=== PATIENT | female | born 1990 | race Caucasian/White ===

== ENCOUNTER 2020-04-22 10:24 | Outpatient (REF) | payer OTHER, SELFPAY | END 2020-04-22 10:25 | disposition home or self-care (01) | LOC: HO.LAB 10:24 | PROVIDERS: Visit Provider Internal Medicine | DX: Z20.822 Contact with and (suspected) exposure to COVID-19 (principal) | CPT/HCPCS: 36415; C9803; U0003 ==

== ENCOUNTER 2020-07-14 13:58 | Outpatient (REF) | payer OTHER, SELFPAY ==
[2020-07-15 09:59] LABS: BV Int Neg Control Negative (Negative); BV Int Pos Control Positive (Positive)
[2020-07-15 10:41] LABS: CT PCR NOT DETECTED (Not Detect.); NG PCR NOT DETECTED (Not Detect.)
== END 2020-07-14 13:59 | disposition home or self-care (01) ==
LOC: HO.LAB 13:58
PROVIDERS: PCP Hospitalist; Visit Provider Advanced Practice Midwife
DX: Z01.419 Encounter for gynecological examination (general) (routine) without abnormal findings (principal); Z11.3 Encounter for screening for infections with a predominantly sexual mode of transmission; Z20.2 Contact with and (suspected) exposure to infections with a predominantly sexual mode of transmission
CPT/HCPCS: 87480; 87491; 87510; 87591; 87660

== ENCOUNTER 2020-08-26 14:25 | Outpatient (REF) | payer OTHER, SELFPAY ==
[2020-08-27 08:46] LABS: BV Int Neg Control Negative (Negative); BV Int Pos Control Positive (Positive)
[2020-08-27 08:47] LABS: CT PCR NOT DETECTED (Not Detect.); NG PCR NOT DETECTED (Not Detect.)
== END 2020-08-26 14:26 | disposition home or self-care (01) ==
LOC: HO.LAB 14:25
PROVIDERS: Visit Provider Advanced Practice Midwife
DX: N89.8 Other specified noninflammatory disorders of vagina (principal); Z20.2 Contact with and (suspected) exposure to infections with a predominantly sexual mode of transmission
CPT/HCPCS: 87480; 87491; 87510; 87591; 87660

== ENCOUNTER 2021-01-06 18:20 | Outpatient (REF) | payer OTHER, SELFPAY ==
[2021-01-06 18:30] LABS: Appearance Urine CLEAR; Color Urine YELLOW; Glucose Urine UA NEG (NEG); Leukocyte Esterase Urine NEG (NEG); Nitrite Urine NEG (NEG); Specific Gravity - Urine 1.025 (1.005-1.025); Urine Blood NEG (NEG); Urine Ketones NEG (NEG); Urine Protein NEG (NEG-TRACE)
== END 2021-01-06 18:21 | disposition home or self-care (01) ==
LOC: HO.LNP 18:20
PROVIDERS: Visit Provider Hospitalist
DX: Z00.00 Encounter for general adult medical examination without abnormal findings (principal)
CPT/HCPCS: 81003

== ENCOUNTER 2021-09-19 17:29 | Outpatient (REF) | payer BC, SELFPAY ==
[2021-09-20 06:04] LABS: CT PCR NOT DETECTED (Not Detect.); NG PCR NOT DETECTED (Not Detect.)
== END 2021-09-19 17:30 | disposition home or self-care (01) ==
LOC: HO.LNP 17:29
DX: Z11.3 Encounter for screening for infections with a predominantly sexual mode of transmission (principal); R30.0 Dysuria
CPT/HCPCS: 87491; 87591

== ENCOUNTER 2021-09-20 11:38 | Outpatient (REF) | payer BC, SELFPAY | END 2021-09-20 11:39 | disposition home or self-care (01) | LOC: HO.LAB 11:38 | DX: Z13.89 Encounter for screening for other disorder (principal) ==

== ENCOUNTER 2021-09-21 08:31 | Emergency (ER) | payer BC, SELFPAY ==
[2021-09-21 08:33] VITALS: BP 119/75; PULSE 86; RESP 18; TEMP 35.8; O2SAT 98; BMI 27.3
--- NOTE | 2021-09-21 09:31 | ED.SKABFB ---
HPI - Skin/Abscess/Foreign Bdy General Chief complaint: Skin/Abscess/Foreign Body Stated complaint: Canker Sores In Mouth Time Seen by Provider: 09/21/21 08:53 Source: patient Mode of arrival: ambulatory Limitations: no limitations History of Present Illness HPI narrative: 31-year-old female previously healthy here with 2 days of flu-like symptoms and then noted lesions in her mouth and around her genital area. Patient is sexually active with 1 male partner. She does not use any contraception. She denies any previous history of herpes. She denies any urinary symptoms, vomiting, diarrhea, abdominal pain, back pain. Related Data Previous Rx's Medication Instructions Recorded metronidazole 0.75 % vaginal gel 1 appful vaginal DAILY 5 days #70 09/19/21 grams valacyclovir 1 gram tablet 1,000 mg PO BID #14 tabs 09/21/21 (Valtrex) Allergies Allergy/AdvReac Type Severity Reaction Status Date / Time Seasonal Allergies Allergy Mild sneezing, Verified 09/19/21 14:09 runny nose Review of Systems Review of Systems: Yes all other systems are reviewed and are negative Constitutional: Constitutional: Reports no additional constitutional complaints, Reports body ache(s), Reports chills, Reports fever(s), Denies headache(s) and Denies weakness Eyes: Eyes: Reports no additional eye complaints and Denies change in vision ENT: Reports system reviewed and no additional complaints, except as documented, Denies dizziness, Denies headache(s), Reports mouth lesions, Denies nasal congestion, Denies nasal discharge and Denies neck pain Cardiovascular: Cardiovascular: Reports no additional cardiovascular complaints, Denies chest pain, Denies leg edema and Denies dyspnea Respiratory: Respiratory: Reports no additional respiratory complaints, Denies cough and Denies dyspnea Gastrointestinal: Gastrointestinal: Reports no additional gastrointestinal complaints, Denies abdominal pain, Denies diarrhea, Denies nausea and Denies vomiting Genitourinary: Genitourinary: Reports no additional female genitourinary complaints, Reports genital lesions and Denies urinary incontinence Musculoskeletal: Musculoskeletal: Reports no additional musculoskeletal complaints, Denies back pain, Denies arthralgias, Denies joint swelling, Denies neck pain, Denies numbness and Denies tingling Integumentary/Breasts: Skin/Breast: Reports system reviewed and no additional complaints, except as docu and Denies rash Neurologic: Reports system reviewed and no additional complaints, except as documented, Denies Abnormal speech present, Denies dizziness, Denies headache(s), Denies numbness, Denies tingling and Denies weakness PMFSH Past Medical History Attestation statement: The following information was validated with the patient. Source: old records reviewed and nursing notes reviewed Family History Family History Mother Diabetes Mental problem Mother HTN (hypertension) Father Hyperlipidemia Mental problem Substance abuse Social History Social History Housing: Apartment Alcohol intake: never Patient Tobacco Use Status: Never used Tobacco e-Cigarette/Vaping Use: Never Used Second Hand Smoke Exposure: No Advance Directives: No Advance Directives Information Provided: No service: No Current occupational status: employed Gender identity: Female Physical Exam Vital Signs: Vital Signs: Last Vital Signs Temp 96.5 F L 09/21/21 08:33 Pulse 86 09/21/21 08:33 Resp 18 09/21/21 08:33 BP 119/75 09/21/21 08:33 Pulse Ox 98 09/21/21 08:33 O2 Del Method 09/21/21 08:33 BMI result Body Mass Index 27.3 Const: General: cooperative, healthy appearing, comfortable and no acute distress Orientation/consciousness: patient oriented x3 Limitations: no limitations HEENT: Other: On the hard palate there are painful ulcerations noted with erythematous base Head: Yes normal to inspection Ears: hearing grossly normal bilaterally and TM's normal bilaterally General nose exam: Normal external nose present Face and sinus: Yes normal facial exam Mouth: Normal oral and palatal mucosa present Throat: Yes posterior oropharynx normal, Yes tonsils normal and Yes uvula midline Eyes: General: appearance normal, both eyes and all related structures Pupils: Equal, round and reactive pupils present Neck: Neck: Yes normal visual inspection, Yes full ROM, Yes no lymphadenopathy and Yes no meningeal signs Chest: Chest palpation & inspection: normal inspection of the chest Resp: Effort & Inspection: normal respiratory effort Auscultation: clear to auscultation bilaterally Cardio: Rate: regular rate Rhythm: regular rhythm Peripheral pulses: Peripheral pulses 2+ throughout GI: Inspection: Yes normal to inspection Palpation (GI): Soft to palpation and nontender Auscultation: normal bowel sounds : 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 Painful ulcerations with erythematous base 2. Painful ulcerations with erythematous base 3. Painful ulcerations with erythematous base 4. Painful ulcerations with erythematous base Back/Spine/Pelvis: Thoracic/Lumbar Spine: thoracic and lumbar spine normal to inspection Skin: General skin exam: no rashes or lesions noted Neuro: General: patient oriented x3, no meningeal signs, no focal motor deficits and normal sensation to monofilament Cranial nerves: Yes Equal, round and reactive pupils present Cognition (Neuro): normal cognition Speech: No Abnormal speech present Gait exam (Neuro): Normal gait present Motor exam (neuro): 5/5 motor strength present throughout Extrem: General: Yes normal to inspection Course Course Course Narrative: Exam consistent with HSV. Reviewed worrisome signs and symptoms of when to return to the emergency department. Comfortable discharge home. MDM - Skin/Abscess/Foreign Bdy MDM Narrative Medical decision making narrative: 31-year-old female with a prodromal flu-like symptoms now with painful lesions to the oropharynx and the genital area. Exam is consistent with HSV. Will also send chlamydia and gonorrhea testing for concurrent STI. Patient will be treated with Valtrex. Medical Records Attestation: I reviewed the patient's medical records. Lab Data Attestation: I reviewed the patient's lab results. Discharge Plan Discharge Clinical Impression: Herpes, Herpes genitalis Patient Disposition: Home, Self-Care Instructions: Genital Herpes Simplex (ED) Additional Instructions: We have tested you for STD's including herpes, gonorrhea and chlamydia. We will call you if these are positive. Avoid unprotected sex while you have active lesions Lukewarm foods/drinks, soft foods Prescriptions: New valacyclovir [Valtrex] 1 gram tablet 1,000 mg PO BID Qty: 14 0RF No Action metronidazole 0.75 % gel 1 appful vaginal DAILY 5 Days Qty: 70 0RF Referrals: Shellie Kwong NP [Primary Care Provider] - 1 week
[2021-09-21 11:15] LABS: CT PCR NOT DETECTED (Not Detect.); NG PCR NOT DETECTED (Not Detect.)
== END 2021-09-21 09:44 | disposition home or self-care (01) ==
PROVIDERS: Nurse Practitioner Family; Emergency Provider Emergency Medicine; PCP Hospitalist
DX: A60.00 Herpesviral infection of urogenital system, unspecified (principal); K12.0 Recurrent oral aphthae; Z79.899 Other long term (current) drug therapy; Z20.2 Contact with and (suspected) exposure to infections with a predominantly sexual mode of transmission
CPT/HCPCS: 87255; 87491; 87591; 99283

== ENCOUNTER 2022-11-29 08:28 | Outpatient (AMB) | payer BC, SELFPAY ==
--- NOTE | 2022-11-29 08:40 | A.OFFPC_ITS ---
Vital Signs 11/29/22 08:41 Height 5 ft Weight 169 lb 6 oz BMI 33.1 BP 118/62 Blood Pressure Location Rt brachial Position Sitting Respiration 14 Pulse 76 Pulse Source Pulse Oximeter Temp 98.9 F Temp Source Temporal Artery Scan Pulse Oximetry (%) 99 Oxygen Delivery Method Room Air Intake Visit Reasons: Annual PE Intake Note: Patient presents for a physical today and reports she does not have any concerns. 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 She has history of genital herpes, on Valtrex. She reports h/o undiagnosed anxiety and depression. She admits to exercising regularly. She declines medication regimen or behavioral therapy. She notes her last pap smear test is within 3 years: normal. She will call to schedule a follow up appointment. [facility] Family History Mother Diabetes Mental problem Mother HTN (hypertension) Father Hyperlipidemia Mental problem Substance abuse Social History (System 03/22/22 @ 09:43 by Harriet Calero) Housing: Apartment Alcohol intake: never Patient Tobacco Use Status: Never used Tobacco e-Cigarette/Vaping Use: Never Used Second Hand Smoke Exposure: No service: No Current occupational status: employed Current occupational exposures/hazards: No Gender identity: Female Cognitive needs: No Hearing needs: No Vision needs: No Female Reproductive History Menstrual Age of Menarche: 10 Questionnaire PHQ-9 Over the last 2 weeks, how often have you been bothered by any of the following problems? 1. Little interest or pleasure in doing things: several days 2. Feeling down, depressed, or hopeless: not at all 3. Trouble falling or staying asleep, or sleeping too much: several days 4. Feeling tired or having little energy: several days 5. Poor appetite or overeating: nearly every day 6. Feeling bad about yourself - or that you are a failure or have let yourself or your family down: nearly every day 7. Trouble concentrating on things, such as reading the newspaper or watching television: not at all 8. Moving or speaking so slowly that other people could have noticed. Or the opposite - being so fidgety or restless that you have been moving around a lot more than usual: not at all 9. Thoughts that you would be better off or of hurting yourself in some way: not at all Total score: 9 Depression Screening Interpretation: Positive Depression Screening Follow-up: Existing condition and Declines treatment 07490 - PHQ-9 Billing: Yes Source: Developed by Drs. Wei Grajeda, Millie Monsalve, Salbador Kunz and colleagues, with an educational daija from [employer]. Thrive Questionnaire Date Thrive assessed: 11/29/22 I am a: Patient What is your living situation today?: I have a steady place to live Within the past 12 months, did the food you bought not last and you didn't have the money to get more?: Never true Within the past 12 months, did you worry whether your food would run out before you got money to buy more?: Never true Do you have trouble paying for medicines?: No Do you have trouble getting transportation to medical appointments?: No Do you have trouble paying your heating and electricity bill?: No Do you have trouble taking care of your child, family member or friend?: No Do you have trouble with day-to-day activities such as bathing, preparing meals, shopping, managing finances, etc.?: No Are you currently unemployed and looking for a job?: No Are you interested in more education?: No Please select the resources that you would like help with: None Currently or been in a relationship where the following occur: no concerns reported AUDIT C Alcohol Use Questionnaire (AUDIT-C) 1. How often do you have a drink containing alcohol?: Monthly or less 2. How many drinks containing alcohol do you have on a typical day when you are drinking?: 1 or 2 3. How often do you have six or more drinks on one occasion?: Less than monthly Total Score: 2 CAMMIE-7 AMB Questionnaire CAMMIE-7 Date CAMMIE - 7 assessed: 11/29/22 Feeling nervous, anxious, or on edge: 1 = Several days Not being able to stop or control worryin = Several days Worrying too much about different things: 3 = Nearly every day Trouble relaxin = Several days Being so restless that it is hard to sit still: 1 = Several days Becoming easily annoyed or irritable: 1 = Several days Feeling afraid as if something awful might happen: 0 = Not at all Total CAMMIE-7 score (0-4 normal; 5-9 mild; 10-14 moderate; 15-21 severe): 8 Source: Developed by Drs. Wei Grajeda, Millie Monsalve, Salbador Kunz and colleagues, with an educational daija from [employer]. CAMMIE-7 Assessment Billing CAMMIE-7 Assessment Tool: CAMMIE-7 Assessment 51586 Review of Systems Const Details: Denies chills, Denies fatigue, Denies fever(s), Denies headache(s) and Denies weakness HEENT Denies change in vision, Denies dizziness, Denies headache(s), Denies hearing loss, Denies nasal congestion, Denies sinus pain, Denies sinus pressure and Denies sore throat Card Denies chest pain, Denies lightheadedness, Denies dyspnea and Denies other (palpitations) Resp Denies cough, Denies dyspnea and Denies wheezing GI Denies abdominal pain, Denies melena, Denies hematochezia, Denies change in bowel habits, Denies dyspepsia and Denies nausea Denies hematuria and Denies dysuria Musc Denies abnormal gait, Denies myalgias, Denies arthralgias, Denies numbness and Denies tingling Skin/Breast Denies rash, Denies unusual bruising and Denies wounds Neuro Denies abnormal gait, Denies dizziness, Denies headache(s), Denies memory loss, Denies numbness, Denies Sensory deficit (Neuro), Denies tingling and Denies weakness Psych Reports anxiety, Reports depression and Denies memory loss Endo Denies cold intolerance, Denies fatigue, Denies heat intolerance, Denies polydipsia and Denies polyuria Roman/Lymph Denies easy bleeding and Denies easy bruising Aller/Immun Denies wheezing Physical exam (Primary Care) Vital Signs: Last Vital Signs Temp 98.9 F 11/29/22 08:41 Pulse 76 11/29/22 08:41 Resp 14 11/29/22 08:41 BP 118/62 11/29/22 08:41 Pulse Ox 99 11/29/22 08:41 Oxygen Delivery Method Room Air 11/29/22 08:41 BMI result Body Mass Index 33.1 Tobacco/Smoking Status: Tobacco use Status Tobacco use date assessed 11/29/22 11/29/22 08:48 Patient Tobacco Use Status Never used Tobacco 11/29/22 08:48 e-Cigarette/Vaping Use Never Used 11/29/22 08:48 PHQ-9: PHQ-9 Score PHQ-9: Total score 9 11/29/22 08:49 Depression Screening Interpretation: Positive Depression Screening Follow-up: Existing condition and Declines treatment Thrive Assessment: Date of Thrive Assessment Date Thrive assessed 11/29/22 11/29/22 08:52 Currently or been in a relationship where the following occur: no concerns reported Const Other: General: no acute distress, well developed, alert and awake Nutritional Appearance: well nourished Orientation/consciousness: patient oriented x3 HENMT Head: Yes normocephalic and Yes atraumatic Ears: hearing grossly normal bilaterally and TM's normal bilaterally General nose exam: Normal external nose present and Normal nares present Mouth: Normal oral and palatal mucosa present and moist mucous membranes Teeth and gingiva: dentition normal Throat: Yes oropharynx normal Eyes Pupils: Equal, round and reactive pupils present and Pupil accommodation reflex normal EOM: EOMs intact bilaterally Neck Neck: Yes normal visual inspection, Yes no lymphadenopathy and Yes trachea midline Thyroid: Thyroid normal Carotids: no bruits Lymphatic: no lymphadenopathy noted Chest Chest palpation & inspection: normal inspection of the chest Resp Effort & Inspection: normal respiratory effort Auscultation: clear to auscultation bilaterally Cardio Rate: regular rate Rhythm: regular rhythm Heart sounds: S1 normal heart sound present, S2 normal heart sound present, no gallops, no murmurs and no rubs Bruits: no abdominal aortic bruits and no carotid bruits GI Palpation (GI): No Abdominal aortic bruit present, Soft to palpation, nontender, No hepatosplenomegaly present and No Rebound tenderness present Auscultation: normal bowel sounds General: Yes no CVA tenderness Back/Spine/Pelvis Back: no CVA tenderness Cervical Spine: cervical ROM normal and No Cervical spine tenderness Thoracic/Lumbar Spine: thoraco-lumbar ROM normal, No pain with thoraco-lumbar ROM, No thoracic spinal tenderness and No lumbar spinal tenderness Skin General: warm and dry. Normal skin color. Normal skin turgor Lesions: no lesions Rashes: no rashes Trauma: no lacerations or abrasions Wounds: no wounds Nails: normal Neuro General: patient oriented x3, gait normal and CN's II-XI intact bilaterally Cranial nerves: Yes Equal, round and reactive pupils present Cognition (Neuro): normal cognition Gait exam (Neuro): Normal gait present Motor exam (neuro): 5/5 motor strength present throughout Sensory Exam: No Sensory deficit (Neuro) Deep tendon reflexes (DTR's): Right patellar reflex intensity grade: 2+ and Left patellar reflex intensity grade: 2+ Extrem General: Yes normal to inspection, No edema and No calf tenderness Psych Appearance: grossly normal Affect: normal affect Attitude: cooperative Thought process: Normal thought process present Assessment and Plan Assessment & Plan (1) Annual physical exam: Code(s): Z00.00 - Encounter for general adult medical examination without abnormal findings Plan: No significant physical restrictions or limitations noted Advised to get routine fasting blood work done and schedule a telehealth follow up for labs review Follow up with director of marketing [employer] as planned Return with symptoms or concerns Verbalized understanding and agreed with the treatment plan. (2) Anxiety and depression: Code(s): F41.9 - Anxiety disorder, unspecified; F32.A - Depression, unspecified Plan: She reports h/o undiagnosed anxiety and depression. She admits to exercising regularly. She declines medication regimen or behavioral therapy. Routine exercise encouraged Advised to inform her PCP if she changes her mind on medication regimen or behavioral therapy Return with worsening or new symptoms Verbalized understanding and agreed with the treatment plan. (3) Laboratory tests ordered as part of a complete physical exam (CPE): Code(s): Z00.00 - Encounter for general adult medical examination without abnormal f indings Plan: Fasting labs ordered as part of a complete physical exam. Advised to fast for at least 10 hours before getting labs drawn. May drink water Verbalized understanding and agreed with treatment plan. Orders: Orders Comprehensive [place]. Panel Fast Today Z00.00 - Encounter for general adult medical examination without abnormal findings Lipid Panel Today Z00.00 - Encounter for general adult medical examination without abnormal findings TSH reflex Free T4 Today Z00.00 - Encounter for general adult medical examination without abnormal findings Complete Blood Count Auto Diff Today Z00.00 - Encounter for general adult medical examination without abnormal findings UA CC w/rflx Micro + Cult Today Z00.00 - Encounter for general adult medical examination without abnormal findings Coding Level of Care Code Est Pt Level 3 (14143) Diagnoses Annual physical exam Z00.00 Anxiety and depression F41.9; F32.A Laboratory tests ordered as part of a complete physical exam (CPE) Z00.00 Additional Codes CAMMIE-7 Assessment Billing - CAMMIE-7 Assessment Tool: CAMMIE-7 Assessment 95218 ([id number])
[2022-11-29 08:41] VITALS: BP 118/62; PULSE 76; RESP 14; TEMP 37.2; O2SAT 99; BMI 33.1
== END 2022-11-29 09:09 | disposition home or self-care (01) ==
PROVIDERS: PCP Hospitalist; Visit Provider Nurse Practitioner Family
DX: Z00.00 Encounter for general adult medical examination without abnormal findings (principal); F41.9 Anxiety disorder, unspecified; F32.A Depression, unspecified
CPT/HCPCS: 99395

== ENCOUNTER 2022-12-27 13:39 | Outpatient (AMB) | payer BC, SELFPAY ==
--- NOTE | 2022-12-27 13:49 | MHC.PC.OV ---
Vital Signs 12/27/22 13:55 Height 5 ft Weight 168 lb 4 oz BMI 32.9 BP 128/64 Blood Pressure Location Lt brachial Position Sitting Respiration 14 Pulse 68 Pulse Source Pulse Oximeter Temp 98.9 F Temp Source Oral Pulse Oximetry (%) 99 Oxygen Delivery Method Room Air Intake Visit Reasons: red dry spot Intake Note: Patient reports she has a red, dry, oval shaped area on her inner right thigh. 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 Patient denies itching to the area. Patient reports she has not tried any treatments over the counter. 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 The rash is non-itchy, non-painful, and has been present for the past 2 weeks. She notes the rash is irritated when she is wearing pants. She not not tried any treatment. PFSH Family History Mother Diabetes Mental problem Mother HTN (hypertension) Father Hyperlipidemia Mental problem Substance abuse Social History Housing: Apartment Alcohol intake: never Patient Tobacco Use Status: Never used Tobacco e-Cigarette/Vaping Use: Never Used Second Hand Smoke Exposure: No service: No Current occupational status: employed Current occupational exposures/hazards: No Gender identity: Female Cognitive needs: No Hearing needs: No Vision needs: No Female Reproductive History Menstrual Age of Menarche: 10 Questionnaire Thrive Questionnaire Date Thrive assessed: 11/29/22 CAMMIE-7 AMB Questionnaire CAMMIE-7 Date CAMMIE - 7 assessed: 11/29/22 Source: Developed by Drs. Wei Grajeda, Milile Monsalve, Salbador Kunz and colleagues, with an educational daija from [employer]. Review of Systems Const Details: Const Denies chills, Denies fatigue, Denies fever(s), Denies headache(s) and Denies weakness ENT Denies dizziness and Denies headache(s) Card Denies chest pain, Denies lightheadedness, Denies dyspnea and Denies other (Palpitations) Resp Denies cough, Denies dyspnea, Denies wheezing and Denies other ( shortness of breath) GI Denies abdominal pain, Denies melena, Denies hematochezia, Denies change in bowel habits, Denies dyspepsia and Denies nausea Denies hematuria and Denies dysuria Musc Denies abnormal gait, Denies myalgias, Denies arthralgias, Denies numbness and Denies tingling Skin/Breast Reports rash, Denies unusual bruising and Denies wounds Neuro Denies abnormal gait, Denies dizziness, Denies headache(s), Denies memory loss, Denies numbness, Denies Sensory deficit (Neuro), Denies tingling and Denies weakness Psych Denies anxiety, Denies depression, Denies memory loss Endo Denies cold intolerance, Denies fatigue, Denies heat intolerance, Denies polydipsia and Denies polyuria Aller/Immun Denies wheezing Physical exam (Primary Care) Tobacco/Smoking Status: Tobacco use Status Tobacco use date assessed 11/29/22 12/27/22 13:50 Patient Tobacco Use Status Never used Tobacco 12/27/22 13:50 e-Cigarette/Vaping Use Never Used 12/27/22 13:50 Thrive Assessment: Date of Thrive Assessment Date Thrive assessed 11/29/22 12/27/22 13:50 Const Other: General: no acute distress and well developed Nutritional Appearance: well nourished Orientation/consciousness: patient oriented x3 HENMT Head: Yes normocephalic and Yes atraumatic Eyes General: appearance normal, both eyes and all related structures Pupils: Equal, round and reactive pupils present EOM: EOMs intact bilaterally Resp Effort & Inspection: normal respiratory effort Auscultation: clear to auscultation bilaterally Cardio Rate: regular rate Rhythm: regular rhythm Heart sounds: S1 normal heart sound present, S2 normal heart sound present, no gallops, no murmurs and no rubs GI Palpation (GI): No Abdominal aortic bruit present, Soft to palpation, nontender, No hepatosplenomegaly present and No Rebound tenderness present Auscultation: normal bowel sounds General: Yes no CVA tenderness Back/Spine/Pelvis Back: no CVA tenderness Cervical Spine: cervical ROM normal and No Cervical spine tenderness Thoracic/Lumbar Spine: thoraco-lumbar ROM normal, No pain with thoraco-lumbar ROM, No thoracic spinal tenderness and No lumbar spinal tenderness Extrem General: Yes normal to inspection, No edema and No calf tenderness Skin General: warm and dry. Normal skin color. Normal skin turgor Lesions: no lesions Rashes: oval, slightly raise rash with clear center noted to the medial right upper thigh, no edema, drainage, or overt infection Trauma: no lacerations or abrasions Wounds: no wounds Nails: normal Neuro General: patient oriented x3, gait normal and no focal neuro deficit Cranial nerves: Yes Equal, round and reactive pupils present Cognition (Neuro): normal cognition Gait exam (Neuro): Normal gait present Sensory Exam: No Sensory deficit (Neuro) Psych Appearance: grossly normal Affect: normal affect Attitude: cooperative Thought process: Normal thought process present Assessment and Plan Assessment & Plan (1) Ringworm: Code(s): B35.9 - Dermatophytosis, unspecified Plan: Oval, slightly raise rash with clear center noted to the medial right upper thigh, no edema, drainage, or overt infection Consistent with ringworm Ketoconazole ordered. Use as prescribed Return if no improvement in to the 3 week or worsening signs and symptoms Verbalized understanding and agreed with treatment plan. Medications: New ketoconazole 2% 1 appl topical BID 30 grams 0RF Coding Level of Care Code Est Pt Level 2 (90671) Diagnoses Ringworm B35.9
[2022-12-27 13:55] VITALS: BP 128/64; PULSE 68; RESP 14; TEMP 37.2; O2SAT 99; BMI 32.9
== END 2022-12-27 15:29 | disposition home or self-care (01) ==
PROVIDERS: PCP Hospitalist; Visit Provider Nurse Practitioner Family
DX: B35.9 Dermatophytosis, unspecified (principal)
CPT/HCPCS: 99212

== ENCOUNTER 2023-08-17 14:58 | Outpatient (AMB) | payer BC, SELFPAY ==
--- NOTE | 2023-08-17 15:00 | MHC.PC.OV ---
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 Required: No Accompanied by: Self / Same As Patient Allergies Seasonal Allergies Allergy (Mild, Verified 08/17/23 15:25) sneezing, runny nose Tobacco use date assessed: 08/17/23 Dental Screening Dental Screen Date: 08/17/23 Did you have a dental visit in the last 12 months?: No Did you have a dental problem in the last 6 months where you did not have access to dental care?: No Was dental information given to patient?: Patient has dentist HPI HPI Comments History of Present Illness Details 33-year-old female presents for transfer of care Her former PCP is SHEMAR who is no longer with the practice Her last office visit/physical exam was in 11/29/2022. Routine labs were ordered but she has not gotten them done She has history of anxiety, depression, and genital herpes. She also reports astigmatism for which she uses prescription glasses. She notes that she is followed by Ophthalmology She notes that her last herpes outbreak was over a year ago and has not been taking valtrex for that long She notes that family and personal stressors contribute to her anxiety and depression symptoms. She states that, just a lot going on. She requests to connect with a therapist. [facility] Medical History (Updated 08/17/23 @ 15:40 by Shannon Whitlock CNP) No pertinent past medical history Surgical History (Updated 08/17/23 @ 15:07 by Gely Oleary [facility] No pertinent past surgical history Family History Mother Diabetes Mental problem Mother HTN (hypertension) Father Hyperlipidemia Mental problem Substance abuse Social History Housing: Apartment Alcohol intake: never Patient Tobacco Use Status: Never used Tobacco e-Cigarette/Vaping Use: Never Used Second Hand Smoke Exposure: No service: No Current occupational status: employed Current occupation: [employer] Current occupational exposures/hazards: No Gender identity: Female Cognitive needs: No Hearing needs: No Vision needs: No Female Reproductive History Menstrual Age of Menarche: 10 Questionnaire PHQ-9 Over the last 2 weeks, how often have you been bothered by any of the following problems? 1. Little interest or pleasure in doing things: nearly every day 2. Feeling down, depressed, or hopeless: several days 3. Trouble falling or staying asleep, or sleeping too much: more than half the days 4. Feeling tired or having little energy: more than half the days 5. Poor appetite or overeating: nearly every day 6. Feeling bad about yourself - or that you are a failure or have let yourself or your family down: several days 7. Trouble concentrating on things, such as reading the newspaper or watching television: several days 8. Moving or speaking so slowly that other people could have noticed. Or the opposite - being so fidgety or restless that you have been moving around a lot more than usual: not at all 9. Thoughts that you would be better off or of hurting yourself in some way: not at all Total score: 13 Depression Screening Interpretation: Positive Depression Screening Follow-up: Existing condition and Community Mental Health Worker F/U Depression Screening Done: Yes 51567 - PHQ-9 Billing: Yes Source: Developed by Drs. Wei Grajeda, Millie Monsalve, Salbador Knuz and colleagues, with an educational daija from [employer]. Thrive Questionnaire Date Thrive assessed: 08/17/23 I am a: Patient What is your living situation today?: I have a steady place to live Within the past 12 months, did the food you bought not last and you didn't have the money to get more?: Never true Within the past 12 months, did you worry whether your food would run out before you got money to buy more?: Never true Do you have trouble paying for medicines?: No Do you have trouble getting transportation to medical appointments?: No Do you have trouble paying your heating and electricity bill?: No Do you have trouble taking care of your child, family member or friend?: No Do you have trouble with day-to-day activities such as bathing, preparing meals, shopping, managing finances, etc.?: No Are you currently unemployed and looking for a job?: No Are you interested in more education?: No Please select the resources that you would like help with: None Currently or been in a relationship where the following occur: no concerns reported THRIVE Score: 0 AUDIT C Alcohol Use Questionnaire (AUDIT-C) 1. How often do you have a drink containing alcohol?: Monthly or less 2. How many drinks containing alcohol do you have on a typical day when you are drinking?: 1 or 2 3. How often do you have six or more drinks on one occasion?: Never Total Score: 1 CAMMIE-7 AMB Questionnaire CAMMIE-7 Date CAMMIE - 7 assessed: 08/17/23 Feeling nervous, anxious, or on edge: 1 = Several days Not being able to stop or control worryin = Several days Worrying too much about different things: 2 = More than half the days Trouble relaxin = More than half the days Being so restless that it is hard to sit still: 3 = Nearly every day Becoming easily annoyed or irritable: 1 = Several days Feeling afraid as if something awful might happen: 0 = Not at all Total CAMMIE-7 score (0-4 normal; 5-9 mild; 10-14 moderate; 15-21 severe): 10 Source: Developed by Drs. Wei Grajeda, Millie Monsalve, Salbador Kunz and colleagues, with an educational daija from [employer]. CAMMIE-7 Assessment Billing CAMMIE-7 Assessment Tool: CAMMIE-7 Assessment 88862 Review of Systems Const Details: Const Denies chills, Denies fatigue, Denies fever(s), Denies headache(s) and Denies weakness ENT Denies dizziness and Denies headache(s) Card Denies chest pain, Denies lightheadedness, Denies dyspnea and Denies other (Palpitations) Resp Denies cough, Denies dyspnea, Denies wheezing and Denies other ( shortness of breath) GI Denies abdominal pain, Denies melena, Denies hematochezia, Denies change in bowel habits, Denies dyspepsia and Denies nausea Denies hematuria and Denies dysuria Musc Denies abnormal gait, Denies myalgias, Denies arthralgias, Denies numbness and Denies tingling Skin/Breast Denies rash, Denies unusual bruising and Denies wounds Neuro Denies abnormal gait, Denies dizziness, Denies headache(s), Denies memory loss, Denies numbness, Denies Sensory deficit (Neuro), Denies tingling and Denies weakness Psych Denies anxiety, Denies depression, Denies memory loss Endo Denies cold intolerance, Denies fatigue, Denies heat intolerance, Denies polydipsia and Denies polyuria Aller/Immun Denies wheezing Physical exam (Primary Care) Vital Signs: Last Vital Signs Temp 97.1 F 08/17/23 15:01 Pulse 57 08/17/23 15:01 Resp 14 08/17/23 15:01 BP 108/74 08/17/23 15:01 Pulse Ox 99 08/17/23 15:01 Oxygen Delivery Method Room Air 08/17/23 15:01 BMI result Body Mass Index 28.2 Tobacco/Smoking Status: Tobacco use Status Tobacco use date assessed 08/17/23 08/17/23 15:09 Patient Tobacco Use Status Never used Tobacco 08/17/23 15:05 e-Cigarette/Vaping Use Never Used 08/17/23 15:05 PHQ-9: PHQ-9 Score PHQ-9: Total score 13 08/17/23 15:24 Depression Screening Interpretation: Positive Depression Screening Follow-up: Existing condition and Community Mental Health Worker F/U Thrive Assessment: Date of Thrive Assessment Date Thrive assessed 08/17/23 08/17/23 15:09 Currently or been in a relationship where the following occur: no concerns reported Const Other: General: no acute distress and well developed Nutritional Appearance: well nourished Orientation/consciousness: patient oriented x3 HENMT Head: Yes normocephalic and Yes atraumatic Eyes General: appearance normal, both eyes and all related structures Pupils: Equal, round and reactive pupils present EOM: EOMs intact bilaterally Resp Effort & Inspection: normal respiratory effort Auscultation: clear to auscultation bilaterally Cardio Rate: regular rate Rhythm: regular rhythm Heart sounds: S1 normal heart sound present, S2 normal heart sound present, no gallops, no murmurs and no rubs GI Palpation (GI): No Abdominal aortic bruit present, Soft to palpation, nontender, No hepatosplenomegaly present and No Rebound tenderness present Auscultation: normal bowel sounds General: Yes no CVA tenderness Back/Spine/Pelvis Back: no CVA tenderness Cervical Spine: cervical ROM normal and No Cervical spine tenderness Thoracic/Lumbar Spine: thoraco-lumbar ROM normal, No pain with thoraco-lumbar ROM, No thoracic spinal tenderness and No lumbar spinal tenderness Extrem General: Yes normal to inspection, No edema and No calf tenderness Skin General: warm and dry. Normal skin color. Normal skin turgor Neuro General: patient oriented x3, gait normal and no focal neuro deficit Cranial nerves: Yes Equal, round and reactive pupils present Cognition (Neuro): normal cognition Gait exam (Neuro): Normal gait present Sensory Exam: No Sensory deficit (Neuro) Psych Appearance: grossly normal Affect: normal affect Attitude: cooperative Thought process: Normal thought process present Assessment and Plan Assessment & Plan (1) Anxiety and depression: Code(s): F41.9 - Anxiety disorder, unspecified; F32.A - Depression, unspecified Plan: Reports personal and family stressors which Reports personal and family stressors contributing to her anxiety and depression symptoms Declines medication management at this time She met with the [facility] who will refer her to a therapist Routine exercise encouraged She may notify her PCP if she changes her mind on medication treatment for anxiety and depression Advised to get fasting lab work done before next visit Follow-up for telehealth visit in 2-3 weeks or return sooner with worsening or new symptoms Verbalized understanding and agreed with treatment plan (2) Astigmatism: Code(s): H52.209 - Unspecified astigmatism, unspecified eye Plan: Wears prescription glasses Advised to follow Ophthalmology as planned Return with symptoms or concerns Verbalized understanding and agreed with plan Coding Level of Care Code Est Pt Level 4 (99431) Complex EM visit Add On G2211 Diagnoses Anxiety and depression F41.9; F32.A Astigmatism H52.209 Additional Codes CAMMIE-7 Assessment Billing - CAMMIE-7 Assessment Tool: CAMMIE-7 Assessment [id number] ([id number])
[2023-08-17 15:01] VITALS: BP 108/74; PULSE 57; RESP 14; TEMP 36.2; O2SAT 99; BMI 28.2
== END 2023-08-17 15:32 | disposition home or self-care (01) ==
PROVIDERS: PCP Hospitalist; Visit Provider Nurse Practitioner Family
DX: F41.9 Anxiety disorder, unspecified (principal); F32.A Depression, unspecified
CPT/HCPCS: 99213

== ENCOUNTER 2023-09-26 08:09 | Outpatient (REF) | payer BC, SELFPAY ==
[2023-09-26 08:23] LABS: MANUAL DIFF FLAG NO
[2023-09-26 08:53] LABS: Basophils Percent Auto 0.5 % (0-2); Eosinophils Absolute Auto 0.1 X10*3/uL (0.0-0.4); Eosinophils Percent Auto 2.2 % (0-4); Hematocrit 39.4 % (37.0-47.0); Hemoglobin 12.6 g/dl (12.0-16.0); Imm Gran Abs Auto 0.02 X10*3/uL (0.00-0.03); Imm Gran Pct Auto 0.3 % (0.0-0.4); Lymphocytes Absolute Auto 2.3 X10*3/uL (1.2-4.9); Lymphocytes Percent Auto 35.7 % (20-40); Mean Corpuscular Hemoglobin 28.1 pg (27.0-33.0); Mean Corpuscular Volume 87.8 fL (80.0-98.0); Mean Platelet Volume 9.3 fL (9.4-12.3); Monocytes Absolute Auto 0.4 X10*3/uL (0.1-1.2); Monocytes Percent Auto 6.6 % (2-11); Neutrophils Absolute Auto 3.5 x10*3/uL (2.0-8.3); Neutrophils Percent Auto 54.7 % (45-73); Platelet Count 241 X10*3/uL (160-400); Red Blood Count 4.49 X10*6/uL (4.20-5.50); Red Cell Distribution Width 13.3 % (11.0-16.0); White Blood Count 6.4 X10*3/uL (4.8-10.8)
[2023-09-26 09:04] LABS: Appearance Urine Clear; Color Urine Yellow; Glucose Urine UA Negative (Negative); Leukocyte Esterase Urine Small (1+) (Negative); Nitrite Urine Negative (Negative); UMIC TRIGGER UACC YES; Urine Blood Negative (Negative); Urine Ketones Negative (Negative); Urine Protein Negative (Neg-Trace)
[2023-09-26 09:12] LABS: Bacteria Urine None Seen (None Seen); Hyaline Casts Urine 0-2 /LPF (0-2); RBC Urine 0-2 /HPF (0-2); UACC Culture Trigger YES; WBC Urine 0-5 /HPF (0-5)
[2023-09-26 09:36] LABS: Alanine Aminotransferase 16 U/L (0-31); Albumin Level 3.6 g/dL (3.5-5.0); Alkaline Phosphatase 44 U/L (39-117); Anion Gap 10 (12-20); Aspartate Amino Transferase 18 U/L (5-31); Bilirubin Total 0.3 mg/dL (0.0-1.0); Blood Urea Nitrogen 13 mg/dL (9-16); Calcium 8.9 mg/dL (8.4-10.2); Carbon Dioxide 27 mmol/L (22-29); Chloride 106 mmol/L (96-108); Cholesterol 201 mg/dL (<200); Estimated Glomerular Filt Rate > 60; Glucose Fasting 83 mg/dL (60-99); HDL Cholesterol 53 mg/dL (>40); LDL Cholesterol Calculated 136 mg/dL (<100); Sodium 139 mmol/L (135-145); Total Protein 6.7 g/dL (6.5-8.0); Triglycerides 63 mg/dL (<150)
[2023-09-26 09:51] LABS: TSH reflex Free T4 0.71 uIU/mL (0.32-4.0)
== END 2023-09-26 08:10 | disposition home or self-care (01) ==
LOC: HO.LAB 08:09
PROVIDERS: PCP Nurse Practitioner Family; Visit Provider Nurse Practitioner Family
DX: Z00.00 Encounter for general adult medical examination without abnormal findings (principal)
CPT/HCPCS: 36415; 80053; 80061; 81001; 81003; 84443; 85025; 87086

== ENCOUNTER 2024-05-21 13:38 | Outpatient (AMB) | payer BC, SELFPAY ==
--- NOTE | 2024-05-21 13:40 | A.OFFPC_ITS ---
Vital Signs 05/21/24 13:46 Height 5 ft Weight 169 lb BMI 33.0 BP 121/57 L Blood Pressure Location Rt brachial Position Sitting Respiration 16 Pulse 84 Pulse Source Pulse Oximeter Temp 97.8 F Temp Source Oral Pulse Oximetry (%) 100 Oxygen Delivery Method Room Air Intake Visit Reasons: Hand Numbness Intake Note: patient here c/o Numbness on both hands for a couple of weeks now. Contact Center Rep Required: No Is last menstrual period known: Yes Last menstrual period: 05/21/24 Post menopausal: No Patient : No Allergies Seasonal Allergies Allergy (Mild, Verified 05/21/24 13:50) sneezing, runny nose Medication List - Last Reconciled 05/21/24 by Shannon Whitlock CNP No Known Home Meds Tobacco use date assessed: 05/21/24 Dental Screening Dental Screen Date: 05/21/24 Did you have a dental visit in the last 12 months?: Yes Did you have a dental problem in the last 6 months where you did not have access to dental care?: No Was dental information given to patient?: Patient has dentist HPI HPI Comments History of Present Illness Details 33-year-old female presents with complai nts of intermittent numbness and tingling in both hands for the past two months. The numbness radiates to her forearms but does not occur in both arms/forearms at the same time. Her symptoms are intensifies at night, right hand worse than left. She denies injury or trauma. She denies loss of sensation. She denies acute symptoms at this time. 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 Wei Grajeda, Millie Monsalve, Salbador Kunz and colleagues, with an educational daija from [employer]. Review of Systems Const Details: Const Denies chills, Denies fatigue, Denies fever(s), Denies headache(s) and Denies weakness ENT Denies dizziness and Denies headache(s) Card Denies chest pain, Denies lightheadedness, Denies dyspnea and Denies other (Palpitations) Resp Denies cough, Denies dyspnea, Denies wheezing and Denies other ( shortness of breath) GI Denies abdominal pain, Denies melena, Denies hematochezia, Denies change in bowel habits, Denies dyspepsia and Denies nausea Denies hematuria and Denies dysuria Musc Denies abnormal gait, Denies myalgias, Denies arthralgias, Denies numbness and Denies tingling Skin/Breast Denies rash, Denies unusual bruising and Denies wounds Neuro Denies abnormal gait, Denies dizziness, Denies headache(s), Denies memory loss, Reports numbness, Denies Sensory deficit (Neuro), Reports tingling and Denies weakness Psych Denies anxiety, Denies depression, Denies memory loss Endo Denies cold intolerance, Denies fatigue, Denies heat intolerance, Denies polydipsia and Denies polyuria Aller/Immun Denies wheezing Physical exam (Primary Care) Vital Signs: Last Vital Signs Temp 97.8 F 05/21/24 13:46 Pulse 84 05/21/24 13:46 Resp 16 05/21/24 13:46 BP 121/57 L 05/21/24 13:46 Pulse Ox 100 05/21/24 13:46 Oxygen Delivery Method Room Air 05/21/24 13:46 BMI result Body Mass Index 33.0 Tobacco/Smoking Status: Tobacco use Status Tobacco use date assessed 05/21/24 05/21/24 13:47 Patient Tobacco Use Status Never used Tobacco 05/21/24 13:42 e-Cigarette/Vaping Use Never Used 05/21/24 13:42 Thrive Assessment: Date of Thrive Assessment Date Thrive assessed 08/17/23 05/21/24 13:42 Const Other: General: no acute distress and well developed Nutritional Appearance: well nourished Orientation/consciousness: patient oriented x3 [facility] Head: Yes normocephalic and Yes atraumatic Eyes General: appearance normal, both eyes and all related structures Pupils: Equal, round and reactive pupils present EOM: EOMs intact bilaterally Resp Effort & Inspection: normal respiratory effort Auscultation: clear to auscultation bilaterally Cardio Rate: regular rate Rhythm: regular rhythm Heart sounds: S1 normal heart sound present, S2 normal heart sound present, no gallops, no murmurs and no rubs GI Palpation (GI): No Abdominal aortic bruit present, Soft to palpation, nontender, No hepatosplenomegaly present and No Rebound tenderness present Auscultation: normal bowel sounds General: Yes no CVA tenderness Back/Spine/Pelvis Back: no CVA tenderness Cervical Spine: cervical ROM normal and No Cervical spine tenderness Thoracic/Lumbar Spine: thoraco-lumbar ROM normal, No pain with thoraco-lumbar ROM, No thoracic spinal tenderness and No lumbar spinal tenderness Extrem General: Yes normal to inspection, No edema and No calf tenderness Skin General: warm and dry. Normal skin color. Normal skin turgor Lesions: no lesions Rashes: no rashes Trauma: no lacerations or abrasions Wounds: no wounds Nails: normal Neuro General: patient oriented x3, gait normal and no focal neuro deficit Cranial nerves: Yes Equal, round and reactive pupils present Cognition (Neuro): normal cognition Gait exam (Neuro): Normal gait present Sensory Exam: No Sensory deficit (Neuro) Psych Appearance: grossly normal Affect: normal affect Attitude: cooperative Thought process: Normal thought process present Coding Level of Care Code Est Pt Level 3 (36581) Diagnoses Numbness and tingling in both hands R20.0; R20.2 Laboratory tests ordered as part of a complete physical exam (CPE) Z00.00 Assessment & Plan Assessment & Plan (1) Numbness and tingling in both hands: Code(s): R20.0 - Anesthesia of skin; R20.2 - Paresthesia of skin Category: Medical Plan: Intermittent numbness and tingling in both hands x2 months. No injury or trauma. Normal exam of the upper extremities. Positive radial pulse bilaterally. Capillary refill brisk. ROM and CML within normal limit. Will check labs, including vitamin B12 and folate and make changes as needed. Adequate hydration encouraged. Advised to get blood work done and follow-up for an extended physical exam. Return sooner with worsening or new symptoms. Verbalized understanding and agreed with treatment plan. (2) Laboratory tests ordered as part of a complete physical exam (CPE): Code(s): Z00.00 - Encounter for general adult medical examination without abnormal findings Category: Medical Plan: Fasting labs ordered as part of a complete physical exam. Advised to fast for at least 10 hours before getting labs drawn. May drink water Verbalized understanding and agreed with treatment plan. Orders: Orders Complete Blood Count Auto Diff Today R20.0 - Anesthesia of skin, R20.2 - Paresthesia of skin, Z00.00 - Encounter for general adult medical examination without abnormal findings Lipid Panel Today Z00.00 - Encounter for general adult medical examination without abnormal findings Vitamin B12 and Folate Today R20.0 - Anesthesia of skin, R20.2 - Paresthesia of skin Comprehensive Douglas. Panel Fast Today R20.0 - Anesthesia of skin, R20.2 - Paresthesia of skin, Z00.00 - Encounter for general adult medical examination without abnormal findings TSH reflex Free T4 Today Z00.00 - Encounter for general adult medical examination without abnormal findings UA CC w/rflx Micro + Cult Today Z00.00 - Encounter for general adult medical examination without abnormal findings Microalbumin, Random (w Creat) Today Z00.00 - Encounter for general adult med ical examination without abnormal findings Vitamin D 25-OH Total Today Z00.00 - Encounter for general adult medical examination without abnormal findings
[2024-05-21 13:46] VITALS: BP 121/57; PULSE 84; RESP 16; TEMP 36.6; O2SAT 100; BMI 33.0
--- OUTSIDE RECORDS SUMMARY | 2024-05-21 13:59 | XMS_ITS | Clinical Summary ---
Author Organization [facility] Address [address] [place] [address] Care Team Providers Care Hourly Team Members Name Role Phone Armando Whitfield Primary Care Provider [phone] Source Comments PLEASE NOTE, if this patient is a minor, it may be UNLAWFUL to discuss sensitive information that is contained in these records (such as FAMILY PLANNING, MENTAL HEALTH or SUBSTANCE ABUSE) with the minor patient's parent or other person without the patient's specific authorization.[facility] Allergies No known active allergies Medications cetirizine (ZYRTEC) 10 mg tabletIndications :Allergic rhinitis, unspecified allergic rhinitis type Take 1 Tab by mouth once daily. 30 Tab 11 10/20/2014 Active Active Problems Problem Noted Date Diagnosed Date Depression 10/20/2014 Overweight 10/20/2014 Immunizations Name Administration Dates Next Due Moderna COVID-19 Vaccine, re d cap blue label, 12+ Primary Series 08/11/2020,07/14/2020 Family History Medical History Relation Name Comments High Cholesterol Father Cancer Maternal Grandmother breast Diabetes Mother Relation Name Status Comments Father Maternal Grandmother Mother Social History Tobacco Use Types Packs/Day Years Used Date Smoking Tobacco: Never Smokeless Tobacco: Never Alcohol Use Standard Drinks/Week Comments No 0 (1 standard drink = 0.6 oz pur e alcohol) Social Connections Answer Date Recorded Connectedness 0 12/20/2023 Financial Resource Strain Answer Date R ecorded Financial Resource Strain 0 2023 Stress Answer Date Recorded Stress 0 08/14/2023 Physical Activity Answer Date Recorded Physical Activity 0 08/14/2023 Food Insecurity Answer Date Recorded Food 0 12/27/2023 Transportation Needs Answer Date Record ed Transportation 0 08/14/2023 Housing Stability Answer Date Recorded Housing 0 08/14/2023 Safety and Environment Answer Date Altaf rded Safety 0 08/14/2023 Utilities Answer Date Recorded Utilities 0 08/14/2023 Employment Answer Date Recorded Stress 0 12/20/2023 Comments No Sex and Gender Information Value Date Recorded Sex Assigned at Not on file Legal Sex Female 10:58 AM PDT Gender Identity Not on file Sexual Orientation Not on file 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 Industry 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 Start Date Job End Date [employer] Not on file 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 file Not on file Not on file Last Filed Vital Signs Vital Sign Reading Time Taken Comments Blood Pressure 116/70 10/20/2014 2:43 PM EDT Pulse 72 10/20/2014 2:43 PM EDT Temperature 36.6 ??C (97.9 ??F) 10/20/2014 2:43 PM ED T Respiratory Rate 17 10/20/2014 2:43 PM EDT Oxygen Saturation - - Inhaled Oxygen Concentration - - Weight 66.2 kg (146 lb) 10/20/2014 2:43 PM EDT Height 152 cm (4' 11.84 ) 10/20/2014 2:43 PM EDT Body Mass Index 28.66 10/20/2014 2:43 PM EDT Plan of Treatment Health Maintenance Due Date Last Done Comments HPV Screening 1992 Hepatitis C Screening 1992 Pap + HPV 1992 Tobacco Screening 1992 HIV Screening 08/14/2007 Relationship Safety Screening/Counseling 08/14/2007 Annual Preventive Care Visit 2010 Cervical Cancer Screening 2013 Pap Smear 2013 Depression Monitoring 01/20/2015 10/20/2014 Hypertension Screening (#1) 10/19/2017 [id number] ( season) 2023 021, 07/14/2020 Imm-Influenza (#1) 2023 01/14/2018, 0 12/20/2009, 12/28/2008 Alcohol and Drug Screen 04/02/2024 10/20/2014, 10/20 Imm-DTaP/Tdap/Td (7 - Td or Tdap) 04/13/2027 04/13/2017, 12/12/2004, 1996, Additional history exists Imm-Hepatitis B Completed 08/31/1995, 06/01, 04/30/1995 Cervical Ablation/Cold-Knife Conization Discontinued Cervical Cryotherapy Discontinued Colposcopy Discontinued Endometrial Biopsy Discontinued Excision/Leep Discontinued HPV Genotyping Discontinued Vaginal Pap Discontinued Vulvoscopy Discontinued Insurance [facility] Care Teams Hourly Team Members Relationship Specialty Start Date End Date Armando Whitfield PA [address] [place] [address] PCP - General Internal Medicine 03/30/16
== END 2024-05-21 13:59 | disposition home or self-care (01) ==
PROVIDERS: PCP Nurse Practitioner Family; Visit Provider Nurse Practitioner Family
DX: R20.0 Anesthesia of skin (principal); R20.2 Paresthesia of skin; Z00.00 Encounter for general adult medical examination without abnormal findings

== ENCOUNTER → 2024-05-21 13:38 | Outpatient (BNVA) | payer BC, SELFPAY | PROVIDERS: PCP Nurse Practitioner Family; Visit Provider Nurse Practitioner Family ==

== ENCOUNTER 2024-06-04 09:55 | Outpatient (REF) | payer BC, SELFPAY ==
[2024-06-04 10:10] LABS: MANUAL DIFF FLAG NO
--- OUTSIDE RECORDS SUMMARY | 2024-06-04 11:29 | XMS_ITS | Clinical Summary ---
Author Organization [facility] Address [address] [place] [address] Care Team Providers Care Sr. 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 on file Not on file Not [...] Monitoring 01/20/2015 10/20/2014 Hypertension Screening (#1) 10/19/2017 [id number] ( season) 2023 021, 07/14/2020 Imm-Influenza (#1) 2023 01/14/2018, 0 12/20/2009, 12/28/2008 Alcohol and Drug Screen 04/02/2024 10/20/2014, 10/20 Imm-DTaP/Tdap/Td (7 - Td or Tdap) 04/13/2027 04/13/2017, 12/12/2004, 1996, Additional history exists Imm-Hepatitis B Completed 08/31/1995, 06/01, 04/30/1995 Cervical Ablation/Cold-Knife Conization Discontinued Cervical Cryotherapy Discontinued Colposcopy Discontinued Endometrial Biopsy Discontinued Excision/Leep Discontinued HPV Genotyping Discontinued Vaginal Pap Discontinued Vulvoscopy Discontinued Insurance [facility] Care Teams Sr. Payroll Manager Relationship Specialty Start Date End Date Armando Whitfield PA [address] [place] [address] PCP - General Internal Medicine 03/30/16
[2024-06-04 11:46] LABS: Basophils Percent Auto 0.4 % (0-2); Eosinophils Absolute Auto 0.2 X10*3/uL (0.0-0.4); Eosinophils Percent Auto 3.3 % (0-4); Hematocrit 43.8 % (37.0-47.0); Hemoglobin 13.7 g/dl (12.0-16.0); Imm Gran Abs Auto 0.01 X10*3/uL (0.00-0.03); Imm Gran Pct Auto 0.2 % (0.0-0.4); Lymphocytes Absolute Auto 1.2 X10*3/uL (1.2-4.9); Lymphocytes Percent Auto 23.7 % (20-40); Mean Corpuscular HGB Conc 31.3 g/dl (31.0-35.0); Mean Corpuscular Volume 86.4 fL (80.0-98.0); Mean Platelet Volume 9.9 fL (9.4-12.3); Monocytes Absolute Auto 0.5 X10*3/uL (0.1-1.2); Monocytes Percent Auto 9.4 % (2-11); Neutrophils Absolute Auto 3.2 x10*3/uL (2.0-8.3); Platelet Count 239 X10*3/uL (160-400); Red Blood Count 5.07 X10*6/uL (4.20-5.50); Red Cell Distribution Width 13.3 % (11.0-16.0); White Blood Count 5.1 X10*3/uL (4.8-10.8)
[2024-06-04 11:54] LABS: Appearance Urine Clear; Color Urine Yellow; Glucose Urine UA Negative (Negative); Leukocyte Esterase Urine Moderate (2+) (Negative); Nitrite Urine Negative (Negative); UMIC TRIGGER UACC YES; Urine Blood Negative (Negative); Urine Ketones Negative (Negative); Urine Protein Negative (Neg-Trace)
[2024-06-04 12:03] LABS: Bacteria Urine 1+ (None Seen); Hyaline Casts Urine 0-2 /LPF (0-2); RBC Urine 0-2 /HPF (0-2); UACC Culture Trigger YES
[2024-06-04 12:32] LABS: Alanine Aminotransferase 26 U/L (0-31); Albumin Level 3.8 g/dL (3.5-5.0); Alkaline Phosphatase 64 U/L (39-117); Anion Gap 9 (12-20); Aspartate Amino Transferase 23 U/L (5-31); Bilirubin Total 0.4 mg/dL (0.0-1.0); Blood Urea Nitrogen 9 mg/dL (9-16); Carbon Dioxide 27 mmol/L (22-29); Chloride 106 mmol/L (96-108); Cholesterol 196 mg/dL (<200); Estimated Glomerular Filt Rate > 60; Glucose Fasting 80 mg/dL (60-99); HDL Cholesterol 53 mg/dL (>40); LDL Cholesterol Calculated 130 mg/dL (<100); Sodium 138 mmol/L (135-145); Total Protein 7.7 g/dL (6.5-8.0); Triglycerides 66 mg/dL (<150)
[2024-06-04 12:42] LABS: TSH reflex Free T4 0.67 uIU/mL (0.32-4.0); Vitamin D 25-OH Total 23.7 ng/mL (>30)
[2024-06-04 12:57] LABS: Creatinine Urine 164.29 mg/dL; Microalbum/Creatinine Ratio Ur 7.3 ug/mg cr (<30)
[2024-06-04 13:19] LABS: Folate 14.9 ng/mL (> or = 4.0); Vitamin B12 757 pg/mL (200-900)
== END 2024-06-04 09:56 | disposition home or self-care (01) ==
LOC: HO.LAB 09:55
PROVIDERS: PCP Nurse Practitioner Family; Visit Provider Nurse Practitioner Family
DX: Z00.00 Encounter for general adult medical examination without abnormal findings (principal); R20.0 Anesthesia of skin; R20.2 Paresthesia of skin; Z13.6 Encounter for screening for cardiovascular disorders; E55.9 Vitamin D deficiency, unspecified
CPT/HCPCS: 36415; 80053; 80061; 81001; 82043; 82306; 82570; 82607; 82746; 84443; 85025; 87086; 87147

== ENCOUNTER 2024-06-06 08:40 | Outpatient (AMB) | payer BC, SELFPAY ==
[2024-06-06 09:25] VITALS: BP 118/80; PULSE 114; TEMP 37.2; O2SAT 95; BMI 33.0
--- NOTE | 2024-06-06 09:25 | MHC.OFFWIV ---
Intake Vital Signs 06/06/24 09:25 Height 5 ft Weight 169 lb BMI 33.0 BP 118/80 Blood Pressure Location Lt brachial Position Sitting Pulse 114 H Pulse Source Pulse Oximeter Temp 99.0 F Temp Source Oral Pulse Oximetry (%) 95 Intake Visit Reasons: EP body aches, cough, congestion, ears, headache Intake Note: pt is here for body aches, cough, congestion, headaches Patient Tobacco Use Status: Never used Tobacco Allergies Seasonal Allergies Allergy (Mild, Verified 06/06/24 09:26) sneezing, runny nose Do you need a note to return to daycare/school/sports/work: Yes HPI EP body aches, cough, congestion, ears, headache HPI Details This is a 33-year-old female patient who presents to the walk-in clinic today a 2-3 day history body aches, congestion, ear pain kwgmv-cecwjgm-jbya-left, headache. Denies any known exposure to sick contacts. Took a COVID test at home which was negative. Denies any GI symptoms. Denies any shortness of breath. 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 Current occupational exposures/hazards: No Gender identity: Female Cognitive needs: No Hearing needs: No Vision needs: No Female Reproductive History Menstrual Age of Menarche: 10 Review of Systems Const All systems reviewed & are unremarkable except as noted in HPI and below Physical Exam Vital Signs: Last Vital Signs Temp 99.0 F 06/06/24 09:25 Pulse 114 H 06/06/24 09:25 BP 118/80 06/06/24 09:25 Pulse Ox 95 06/06/24 09:25 BMI result Body Mass Index 33.0 Const General: cooperative and no acute distress HEENT Head: Yes normal to inspection Ears: hearing grossly normal bilaterally, TM normal on the left and TM abnormal (right TM erythematous, loss of landmarks) General nose exam: Normal external nose present Face and sinus: Yes normal facial exam Neck Neck: Yes no lymphadenopathy Resp Effort & Inspection: normal respiratory effort Auscultation: clear to auscultation bilaterally Cardio Rate: regular rate Rhythm: regular rhythm Heart sounds: S1 normal heart sound present and S2 normal heart sound present Skin General skin exam: no rashes or lesions noted Extrem General: Yes capillary refill normal and Yes no clubbing, cyanosis or edema Psych Appearance: grossly normal Mental Status: mental status grossly normal Speech and movement: Normal speech and movement present Assessment & Plan Assessment & Plan (1) Right acute otitis media: Code(s): H66.91 - Otitis media, unspecified, right ear Plan: Patient has right acute otitis media in the presence of what appears to be a viral upper respiratory illness. We will start her on Augmentin for the ear infection. We reviewed indications, use, possible side effects of medication. Otherwise we discussed conservative measures for symptom management, including wfbh-xkv-nuykxel cold/ flu medication, Tylenol as needed. Also recommended adequate rest, hydration, healthy food intake. Work note provided. Patient advised to return to the clinic if she does not improve with time and these measures. She verbalizes understanding and agrees to plan. Viral swab obtained, and patient aware she will be notified of these results once they are available. Orders: Orders SARS-CoV2/FLU/RSV Today J06.9 - Acute upper respiratory infection, unspecified Medications: New amoxicillin-pot clavulanate 875-125 mg Take one tablet by mouth twice a day for 7 days. 1 tab PO BID 7 days 14 tabs 0RF H66.91 - Otitis media, unspecified, right ear Coding Level of Care Code Est Pt Level 4 (40233) Diagnoses Right acute otitis media H66.91
== END 2024-06-06 10:11 | disposition home or self-care (01) ==
PROVIDERS: PCP Nurse Practitioner Family; Visit Provider Nurse Practitioner Family
DX: H66.91 Otitis media, unspecified, right ear (principal)

== ENCOUNTER 2024-06-06 08:40 | Outpatient (REF) | payer BC, SELFPAY ==
[2024-06-06 14:06] LABS: Influenza A PCR POSITIVE (Negative); Influenza B PCR NEGATIVE (Negative); Resp Syncy Virus RNA Qual PCR NEGATIVE (Negative); SARS COV2 PCR INHOUSE NEGATIVE (Negative)
--- OUTSIDE RECORDS SUMMARY | 2024-06-06 14:49 | XMS_ITS | Clinical Summary ---
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 Not on file Not [...] Monitoring 01/20/2015 10/20/2014 Hypertension Screening (#1) 10/19/2017 [id number] ( season) 2023 021, 07/14/2020 Imm-Influenza (#1) 2023 01/14/2018, 0 12/20/2009, 12/28/2008 Alcohol and Drug Screen 04/02/2024 10/20/2014, 10/20 Imm-DTaP/Tdap/Td (7 - Td or Tdap) 04/13/2027 04/13/2017, 12/12/2004, 1996, Additional history exists Imm-Hepatitis B Completed 08/31/1995, 06/01, 04/30/1995 Cervical Ablation/Cold-Knife Conization Discontinued Cervical Cryotherapy Discontinued Colposcopy Discontinued Endometrial Biopsy Discontinued Excision/Leep Discontinued HPV Genotyping Discontinued Vaginal Pap Discontinued Vulvoscopy Discontinued Insurance [facility] Care Teams Regional Forester Relationship Specialty Start Date End Date Armando Whitfield PA [address] [place] [address] PCP - General Internal Medicine 03/30/16
== END 2024-06-06 08:41 | disposition home or self-care (01) ==
LOC: HO.LNP 08:40
PROVIDERS: PCP Nurse Practitioner Family; Visit Provider Nurse Practitioner Family
DX: J06.9 Acute upper respiratory infection, unspecified (principal); H66.91 Otitis media, unspecified, right ear
CPT/HCPCS: 0241U

== ENCOUNTER 2024-07-11 15:16 | Outpatient (AMB) | payer BC, SELFPAY ==
--- OUTSIDE RECORDS SUMMARY | 2024-07-11 15:19 | XMS_ITS | Clinical Summary ---
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 file Not on file Not [...] Health Maintenance Due Date Last Done Comments Anxiety Screening 1992 HPV Screening 1992 Hepatitis C Screening 1992 Pap + HPV 1992 Tobacco Screening 1992 HIV Screening 08/14/2007 Relationship Safety Screening/Counseling 08/14/2007 Cervical Cancer Screening 2013 Pap Smear 2013 Depression Monitoring 01/20/2015 10/20/2014 Hypertension Screening (#1) 10/19/2017 [id number] ( season) 2023 021, 07/14/2020 Imm-Influenza (#1) 2023 01/14/2018, 0 12/20/2009, 12/28/2008 Alcohol and Drug Screen 04/02/2024 10/20/2014, 10/20 Imm-DTaP/Tdap/Td (7 - Td or Tdap) 04/13/2027 04/13/2017, 12/12/2004, 1996, Additional history exists Imm-Hepatitis B Completed 08/31/1995, 06/01, 04/30/1995 Cervical Ablation/Cold-Knife Conization Discontinued Cervical Cryotherapy Discontinued Colposcopy Discontinued Endometrial Biopsy Discontinued Excision/Leep Discontinued HPV Genotyping Discontinued Vaginal Pap Discontinued Vulvoscopy Discontinued Insurance [facility] Care Teams Outbound Sales Specialist Relationship Specialty Start Date End Date Armando Whitfield PA [address] [place] [address] PCP - General Internal Medicine 03/30/16
--- NOTE | 2024-07-11 15:20 | MHC.PC.OV ---
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 Is last menstrual period known: Yes Last menstrual period: 07/04/24 Post menopausal: No Patient : No Allergies Seasonal Allergies Allergy (Mild, Verified 07/11/24 15:39) sneezing, runny nose Medication List - Last Reconciled 07/11/24 by Shannon Whitlock CNP amoxicillin-pot clavulanate 875-125 mg 1 tab PO BID 7 days cholecalciferol (vitamin D3) 25 mcg PO DAILY 30 days Tobacco use date assessed: 07/11/24 Dental Screening Dental Screen Date: 07/11/24 Did you have a dental visit in the last 12 months?: Yes Did you have a dental problem in the last 6 months where you did not have access to dental care?: No Was dental information given to patient?: Patient has dentist HPI HPI Comments History of Present Illness Details 33-year-old female presents for an extended physical exam. Acute issue(s) - Astigmatism: She wears prescription glasses. Past Medical History - Vitamin-D deficiency, astigmatism, genital herpes, anxiety, depression Social History - Nonsmoker. Does not vape. Has not drank alcohol for for the past 2 months. Denies recreational drug use - She generally makes unhealthy dietary choices. Walks regularly. Generally sleep well Health maintenance - Last eye exam was a year ago at [facility] in [facility]. 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 She will sign a release for her PCP to obtain her ophthalmology record - Last dental visit was 2 weeks ago - Last Tdap was in 04/13/2017 - Has not been vaccinated for the flu this season; declines vaccination - Last pap smear test was 3 years ago: normal. Record not available. She has an appointment in August with [facility] [place] a pap smear test. 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 1. Little interest or pleasure in doing things: more than half the days 2. Feeling down, depressed, or hopeless: several days 3. Trouble falling or staying asleep, or sleeping too much: not at all 4. Feeling tired or having little energy: more than half the days 5. Poor appetite or overeating: not at all 6. Feeling bad about yourself - or that you are a failure or have let yourself or your family down: several days 7. Trouble concentrating on things, such as reading the newspaper or watching television: several days 8. Moving or speaking so slowly that other people could have noticed. Or the opposite - being so fidgety or restless that you have been moving around a lot more than usual: not at all 9. Thoughts that you would be better off or of hurting yourself in some way: not at all Total score: 7 Depression Screening Interpretation: Positive Depression Screening Follow-up: Existing condition Depression Screening Done: Yes 60603 - PHQ-9 Billing: Yes Source: Developed by Drs. Wei Grajeda, Millie Monsalve, Salbador Kunz and colleagues, with an educational daija from [employer]. Thrive Questionnaire Date Thrive assessed: 07/11/24 I am a: Patient What is your living situation today?: I have a steady place to live Within the past 12 months, did the food you bought not last and you didn't have the money to get more?: Never true Within the past 12 months, did you worry whether your food would run out before you got money to buy more?: Never true Do you have trouble paying for medicines?: No Do you have trouble getting transportation to medical appointments?: No Do you have trouble paying your heating and electricity bill?: No Do you have trouble taking care of your child, family member or friend?: No Do you have trouble with day-to-day activities such as bathing, preparing meals, shopping, managing finances, etc.?: No Are you currently unemployed and looking for a job?: No Are you interested in more education?: No Please select the resources that you would like help with: None Currently or been in a relationship where the following occur: No concerns reported THRIVE Score: 0 AUDIT C Alcohol Use Questionnaire (AUDIT-C) 1. How often do you have a drink containing alcohol?: 2-4 times a month 2. How many drinks containing alcohol do you have on a typical day when you are drinking?: 1 or 2 3. How often do you have six or more drinks on one occasion?: Never Total Score: 2 Score Reviewed/Action Taken: Yes CAMMIE-7 AMB Questionnaire CAMMIE-7 Date CAMMIE - 7 assessed: 07/11/24 Feeling nervous, anxious, or on edge: 2 = More than half the days Not being able to stop or control worryin = More than half the days Worrying too much about different things: 2 = More than half the days Trouble relaxin = More than half the days Being so restless that it is hard to sit still: 2 = More than half the days Becoming easily annoyed or irritable: 2 = More than half the days Feeling afraid as if something awful might happen: 1 = Several days Total CAMMIE-7 score (0-4 normal; 5-9 mild; 10-14 moderate; 15-21 severe): 13 Source: Developed by Drs. Wei Grajeda, Millie Monsalve, Salbador Kunz and colleagues, with an educational daija from [employer]. CAMMIE-7 Assessment Billing CAMMIE-7 Assessment Tool: CAMMIE-7 Assessment 99472 Review of Systems Const Details: Denies chills, Denies fatigue, Denies fever(s), Denies headache(s) and Denies weakness HEENT Denies change in vision, Denies dizziness, Denies headache(s), Denies hearing loss, Denies nasal congestion, Denies sinus pain, Denies sinus pressure and Denies sore throat Card Denies chest pain, Denies lightheadedness, Denies dyspnea and Denies other (palpitations) Resp Denies cough, Denies dyspnea and Denies wheezing GI Denies abdominal pain, Denies melena, Denies hematochezia, Denies change in bowel habits, Denies dyspepsia and Denies nausea Denies hematuria and Denies dysuria Musc Denies abnormal gait, Denies myalgias, Denies arthralgias, Denies numbness and Denies tingling Skin/Breast Denies rash, Denies unusual bruising and Denies wounds Neuro Denies abnormal gait, Denies dizziness, Denies headache(s), Denies memory loss, Denies numbness, Denies Sensory deficit (Neuro), Denies tingling and Denies weakness Psych Denies anxiety, Denies depression and Denies memory loss Endo Denies cold intolerance, Denies fatigue, Denies heat intolerance, Denies polydipsia and Denies polyuria Roman/Lymph Denies easy bleeding and Denies easy bruising Aller/Immun Denies wheezing Physical exam (Primary Care) Vital Signs: Last Vital Signs Temp 97.8 F 07/11/24 15:24 Pulse 75 07/11/24 15:24 Resp 16 07/11/24 15:24 BP 116/63 07/11/24 15:24 Pulse Ox 100 07/11/24 15:24 Oxygen Delivery Method Room Air 07/11/24 15:24 BMI result Body Mass Index 33.7 Tobacco/Smoking Status: Tobacco use Status Tobacco use date assessed 07/11/24 07/11/24 15:31 Patient Tobacco Use Status Never used Tobacco 07/11/24 15:22 e-Cigarette/Vaping Use Never Used 07/11/24 15:22 PHQ-9: PHQ-9 Score PHQ-9: Total score 7 07/11/24 15:31 Depression Screening Interpretation: Positive Depression Screening Follow-up: Existing condition Thrive Assessment: Date of Thrive Assessment Date Thrive assessed 07/11/24 07/11/24 15:31 Currently or been in a relationship where the following occur: No concerns reported Const Other: General: no acute distress, well developed, alert and awake Nutritional Appearance: well nourished Orientation/consciousness: patient oriented x3 [facility] Head: Yes normocephalic and Yes atraumatic Ears: hearing grossly normal bilaterally and TM's normal bilaterally General nose exam: Normal external nose present and Normal nares present Mouth: Normal oral and palatal mucosa present and moist mucous membranes Teeth and gingiva: dentition normal Throat: Yes oropharynx normal Eyes Pupils: Equal, round and reactive pupils present and Pupil accommodation reflex normal EOM: EOMs intact bilaterally Neck Neck: Yes normal visual inspection, Yes no lymphadenopathy and Yes trachea midline Thyroid: Thyroid normal Carotids: no bruits Lymphatic: no lymphadenopathy noted Chest Chest palpation & inspection: normal inspection of the chest Resp Effort & Inspection: normal respiratory effort Auscultation: clear to auscultation bilaterally Cardio Rate: regular rate Rhythm: regular rhythm Heart sounds: S1 normal heart sound present, S2 normal heart sound present, no gallops, no murmurs and no rubs Bruits: no abdominal aortic bruits and no carotid bruits GI Palpation (GI): No Abdominal aortic bruit present, Soft to palpation, nontender, No hepatosplenomegaly present and No Rebound tenderness present Auscultation: normal bowel sounds General: Yes no CVA tenderness Back/Spine/Pelvis Back: no CVA tenderness Cervical Spine: cervical ROM normal and No Cervical spine tenderness Thoracic/Lumbar Spine: thoraco-lumbar ROM normal, No pain with thoraco-lumbar ROM, No thoracic spinal tenderness and No lumbar spinal tenderness Skin General: warm and dry. Normal skin color. Normal skin turgor Lesions: no lesions Rashes: no rashes Trauma: no lacerations or abrasions Wounds: no wounds Nails: normal Neuro General: patient oriented x3, gait normal and CN's II-XI intact bilaterally Cranial nerves: Yes Equal, round and reactive pupils present Cognition (Neuro): normal cognition Gait exam (Neuro): Normal gait present Motor exam (neuro): 5/5 motor strength present throughout Sensory Exam: No Sensory deficit (Neuro) Deep tendon reflexes (DTR's): Right patellar reflex intensity grade: 2+ and Left patellar reflex intensity grade: 2+ Extrem General: Yes normal to inspection, No edema and No calf tenderness Psych Appearance: grossly normal Affect: normal affect Attitude: cooperative Thought process: Normal thought process present Coding Level of Care Code Est Pt Level 3 (89478) Est Pt Prev Care 18-39y(76318) Diagnoses Normal physical examination, routine Z00.00 Anxiety and depression F41.9; F32.A Hypercholesterolemia E78.00 Vitamin D deficiency E55.9 Obesity (BMI 30-39.9) E66.9 Additional Codes CAMMIE-7 Assessment Billing - CAMMIE-7 Assessment Tool: CAMMIE-7 Assessment 97995 ([id number]) PHQ-9 - 05492 - PHQ-9 Billing: Yes ([id number]) Assessment & Plan Assessment & Plan (1) Normal physical examination, routine: Code(s): Z00.00 - Encounter for general adult medical examination without abnormal findings Category: Medical Plan: No significant functional limitation noted. Continue current treatment regimen. Healthy diet and routine exercise encouraged. Perform lab work 2-3 days before next visit. Follow-up for telehealth in 2 months. Return sooner with symptoms or concerns. Verbalized understanding and agreed with plan. (2) Anxiety and depression: Code(s): F41.9 - Anxiety disorder, unspecified; F32.A - Depression, unspecified Category: Medical Plan: Reports controlled anxiety and depressive symptoms. PHQ-9 and CAMMIE-7 scores revealed mild depression and moderate anxiety respectively. Routine exercise encouraged. Follow-up with symptoms or concerns. Verbalized understanding and agreed with treatment plan. (3) Hypercholesterolemia: Code(s): E78.00 - Pure hypercholesterolemia, unspecified Category: Medical Plan: Recent LDL level is slightly elevated, 130. Triglycerides, total cholesterol, and HDL levels are normal. Advised to limit foods high in saturated fat and avoid foods high in trans fat. Routine exercise encouraged. Fast for 10-12 hours, may drink water, perform lipid panel blood work 2-3 days before next visit. Follow-up for telehealth visit in 2 months. Verbalized understanding and agreed with the plan. (4) Vitamin D deficiency: Code(s): E55.9 - Vitamin D deficiency, unspecified Category: Medical Plan: Recent vitamin-D level is low, 23.7. She was recently prescribed vitamin D3 25 mcg which she has been taking as prescribed. Continue current treatment regimen. Will recheck vitamin-D level in 2 months. (5) Obesity (BMI 30-39.9): Code(s): E66.9 - Obesity, unspecified Category: Medical Plan: She currently weighs 172 lb, BMI is 33.7. She has been making on healthy dietary choices including steak and cheese. Declines referral to ammonia box operator/dietitian or weight management at this time. She notes that she would improve her diet and start going to the gym. Healthy diet and routine exercise encouraged. Follow-up as needed. Verbalized understanding and agreed with treatment plan. Orders: Orders Lipid Panel 2 Months E78.00 - Pure hypercholesterolemia, unspecified Medications: Discontinued amoxicillin-pot clavulanate 875-125 mg Take one tablet by mouth twice a day for 7 days. Discontinued Reason: Patient no longer taking 1 tab PO BID 7 days 14 tabs 0RF H66.91 - Otitis media, unspecified, right ear
[2024-07-11 15:24] VITALS: BP 116/63; PULSE 75; RESP 16; TEMP 36.6; O2SAT 100; BMI 33.7
== END 2024-07-11 15:57 | disposition home or self-care (01) ==
LOC: HO.HMCFM 15:17
PROVIDERS: PCP Nurse Practitioner Family; Visit Provider Nurse Practitioner Family
DX: Z00.00 Encounter for general adult medical examination without abnormal findings (principal); F41.9 Anxiety disorder, unspecified; E66.9 Obesity, unspecified; Z68.33 Body mass index [BMI] 33.0-33.9, adult; F32.A Depression, unspecified; E78.00 Pure hypercholesterolemia, unspecified; E55.9 Vitamin D deficiency, unspecified

== ENCOUNTER → 2024-07-11 15:16 | Outpatient (BNVA) | payer BC, SELFPAY | PROVIDERS: PCP Nurse Practitioner Family; Visit Provider Nurse Practitioner Family | DX: Z00.00 Encounter for general adult medical examination without abnormal findings (principal); F41.9 Anxiety disorder, unspecified; F32.A Depression, unspecified; E78.00 Pure hypercholesterolemia, unspecified; E55.9 Vitamin D deficiency, unspecified; E66.9 Obesity, unspecified; Z68.33 Body mass index [BMI] 33.0-33.9, adult | CPT/HCPCS: 96127 ==

== ENCOUNTER 2024-09-18 10:21 | Outpatient (REF) | payer BC, SELFPAY ==
[2024-09-18 11:16] LABS: Appearance Urine Clear; Color Urine Yellow; Glucose Urine UA Negative (Negative); Leukocyte Esterase Urine Moderate (2+) (Negative); Nitrite Urine Negative (Negative); UMIC TRIGGER UACC YES; Urine Blood Negative (Negative); Urine Ketones Negative (Negative); Urine Protein Negative (Neg-Trace)
[2024-09-18 11:27] LABS: Bacteria Urine Trace (None Seen); Hyaline Casts Urine 0-2 /LPF (0-2); RBC Urine 0-2 /HPF (0-2); UACC Culture Trigger YES; WBC Urine 0-5 /HPF (0-5)
--- OUTSIDE RECORDS SUMMARY | 2024-09-18 11:42 | XMS_ITS | Clinical Summary ---
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 Not on file Not on file Last Filed Vital Signs Vital Sign Reading Time Taken Comments Blood Pressure 116/70 10/20/2014 2:43 PM EDT Pulse 72 10/20/2014 2:43 PM EDT Temperature 36.6 C (97.9 F) 10/20/2014 2:43 PM EDT Respiratory Rate 17 10/20/2014 2:43 PM EDT [...] Monitoring 01/20/2015 10/20/2014 Hypertension Screening (#1) 10/19/2017 [id number] ( season) 2023 021, 07/14/2020 Alcohol and Drug Screen 04/02/2024 10/20/2014, 10/20 Imm-Influenza (Season Ended) 2024, 12/20/2009, 12/28/2008 Imm-DTaP/Tdap/Td (7 - Td or Tdap) 04/13/2027 04/13/2017, 12/12/2004, 1996, Additional history exists Imm-Hepatitis B Completed 08/31/1995, 06/01, 04/30/1995 Cervical Ablation/Cold-Knife Conization Discontinued Cervical Cryotherapy Discontinued Colposcopy Discontinued Endometrial Biopsy Discontinued Excision/Leep Discontinued HPV Genotyping Discontinued Vaginal Pap Discontinued Vulvoscopy Discontinued Insurance [facility] Care Teams Tax Intern Relationship Specialty Start Date End Date Armando Whitfield PA [address] [place] [address] PCP - General Internal Medicine 03/30/16
[2024-09-18 12:16] LABS: Cholesterol 216 mg/dL (<200); HDL Cholesterol 52 mg/dL (>40); LDL Cholesterol Calculated 145 mg/dL (<100); Triglycerides 98 mg/dL (<150)
[2024-09-18 12:32] LABS: Vitamin D 25-OH Total 35.4 ng/mL (>30)
== END 2024-09-18 10:22 | disposition home or self-care (01) ==
LOC: HO.LAB 10:21
PROVIDERS: PCP Nurse Practitioner Family; Visit Provider Nurse Practitioner Family
DX: E78.00 Pure hypercholesterolemia, unspecified (principal); E55.9 Vitamin D deficiency, unspecified; R82.79 Other abnormal findings on microbiological examination of urine
CPT/HCPCS: 36415; 80061; 81001; 82306; 87086; 87147

== ENCOUNTER 2024-09-19 13:43 | Outpatient (AMB) | payer BC, SELFPAY ==
--- NOTE | 2024-09-19 13:28 | A.OFFPC_ITS ---
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 Is last menstrual period known: Yes Last menstrual period: 08/02/24 Post menopausal: No Patient : No Allergies Seasonal Allergies Allergy (Mild, Verified 09/19/24 13:29) sneezing, runny nose Tobacco use date assessed: 09/19/24 Dental Screening Dental Screen Date: 09/19/24 Did you have a dental visit in the last 12 months?: Yes Did you have a dental problem in the last 6 months where you did not have access to dental care?: No Was dental information given to patient?: Patient has dentist HPI HPI Comments History of Present Illness Details 34-year-old female [facility] for hypercholesterolemia and vitamin-D deficiency follow-up. She admits to taking vitamin D3 as prescribed without adverse reactions. She notes that she consumes significant amount of processed foods. She walks regularly. She offers no complaints and denies acute symptoms at this time. 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 Current occupational exposures/hazards: No Gender identity: Female Cognitive needs: No Hearing needs: No Vision needs: No Female Reproductive History Menstrual Age of Menarche: 10 Date of last menstrual period: 08/02/24 Questionnaire Thrive Questionnaire Date Thrive assessed: 05/21/24 I am a: Patient What is your living situation today?: I have a steady place to live Within the past 12 months, did the food you bought not last and you didn't have the money to get more?: Never true Within the past 12 months, did you worry whether your food would run out before you got money to buy more?: Never true Do you have trouble paying for medicines?: No Do you have trouble getting transportation to medical appointments?: No Do you have trouble paying your heating and electricity bill?: No Do you have trouble taking care of your child, family member or friend?: No Do you have trouble with day-to-day activities such as bathing, preparing meals, shopping, managing finances, etc.?: No Are you currently unemployed and looking for a job?: No Are you interested in more education?: No Please select the resources that you would like help with: None Currently or been in a relationship where the following occur: No concerns reported THRIVE Score: 0 AUDIT C Alcohol Use Questionnaire (AUDIT-C) 2. How many drinks containing alcohol do you have on a typical day when you are drinking?: 1 or 2 3. How often do you have six or more drinks on one occasion?: Less than monthly Total Score: 1 CAMMIE-7 AMB Questionnaire CAMMIE-7 Date CAMMIE - 7 assessed: 07/11/24 Source: Developed by Drs. Wei Grajeda, Millie Monsalve, Salbador Kunz and colleagues, with an educational daija from [employer]. Review of Systems Const Details: Denies chills, Denies fatigue, Denies fever(s), Denies headache(s) and Denies weakness Cardiac Denies chest pain, Denies claudication, Denies leg edema, Denies lightheadedness, Denies palpitations, Denies dyspnea, Denies dyspnea on exertion, Denies orthopnea and Denies other (Loss of consciousness) Resp Denies cough, Denies excessive phlegm production, Denies dyspnea, Denies dyspnea on exertion, Denies snoring and Denies wheezing Physical exam (Primary Care) Tobacco/Smoking Status: Tobacco use Status Tobacco use date assessed 09/19/24 09/19/24 13:31 Patient Tobacco Use Status Never used Tobacco 09/19/24 13:31 e-Cigarette/Vaping Use Never Used 09/19/24 13:31 Thrive Assessment: Date of Thrive Assessment Date Thrive assessed 05/21/24 09/19/24 13:31 Currently or been in a relationship where the following occur: No concerns reported Const Other: Patient is alert and oriented x3 Telehealth Telehealth Telehealth Platform: Telephone Location of provider rendering services: practice address Location of patient: address on file Patient Identification confirmed using: Name, : Yes Telehealth method: voice only Patient verbally consented to treatment: Yes Patient verbally consented to billing insurance company: Yes Patient informed of any privacy concerns related to visit: Yes Coding Level of Care Code Tele Est Pt Level 3 (09362) Diagnoses Hypercholesterolemia E78.00 Vitamin D deficiency E55.9 Time Spent (min) 15 Assessment & Plan Assessment & Plan (1) Hypercholesterolemia: Code(s): E78.00 - Pure hypercholesterolemia, unspecified Category: Medical Plan: Recent total cholesterol and LDL levels a elevated, 216 and 145 respectively; previous levels were 196 and 130 respectively. Recent triglycerides and HDL levels are normal. She consumes significant amount of processed foods. Advised to limit foods high in saturated fat and avoid foods high in trans fat. Routine exercise encouraged. Fast for 10-12 hours, may drink water, perform lipid panel blood work 2-3 days before next visit. Follow-up for telehealth visit in 2 months. Return sooner with symptoms or concerns. Verbalized understanding and agreed with the plan. (2) Vitamin D deficiency: Code(s): E55.9 - Vitamin D deficiency, unspecified Category: Medical Plan: Recent vitamin-D level is normal. Continue current treatment regimen. Verbalized understanding and agreed with the plan.
== END 2024-09-19 15:26 | disposition home or self-care (01) ==
LOC: HO.HMCFM 13:43
PROVIDERS: PCP Nurse Practitioner Family; Visit Provider Nurse Practitioner Family
DX: E78.00 Pure hypercholesterolemia, unspecified (principal); E55.9 Vitamin D deficiency, unspecified

== ENCOUNTER → 2024-09-19 13:43 | Outpatient (BNVA) | payer BC, SELFPAY | PROVIDERS: PCP Nurse Practitioner Family; Visit Provider Nurse Practitioner Family | DX: E78.00 Pure hypercholesterolemia, unspecified (principal); E55.9 Vitamin D deficiency, unspecified | CPT/HCPCS: 98967 ==

== ENCOUNTER 2024-10-21 10:09 | Outpatient (AMB) | payer BC, SELFPAY ==
--- NOTE | 2024-10-21 10:18 | MHC.OFFWIV ---
Intake Vital Signs 10/21/24 10:19 Height 5 ft Weight 175 lb BMI 34.2 BP 102/70 Blood Pressure Location Lt brachial Position Sitting Pulse 71 Pulse Source Pulse Oximeter Temp 98.2 F Temp Source Oral Pulse Oximetry (%) 98 Oxygen Delivery Method Room Air Intake Visit Reasons: EP RT shoulder pain & unable to lift it Intake Note: pt here for right shoulder pain and she is unable to lift it 2 days Patient Tobacco Use Status: Never used Tobacco Allergies Seasonal Allergies Allergy (Mild, Verified 10/21/24 10:19) sneezing, runny nose Medication List - Last Reconciled 10/21/24 by Enmanuel Bazzi MD cholecalciferol (vitamin D3) 25 mcg PO DAILY 30 days diclofenac sodium 75 mg PO BID 10 days Do you need a note to return to daycare/school/sports/work: No HPI EP RT shoulder pain & unable to lift it HPI Details History - The patient is a 34-year-old female presenting with shoulder pain. - The shoulder pain began on Sunday night; it has been present for two days. - The pain onset was noted after she woke up on Sunday, with prior activities including cleaning the bathroom on Sunday. - There has been no prior history of similar episodes of shoulder pain. - Pain has been described as severe and persistent, affecting arm mobility. - The patient has taken Tylenol and Motrin, but neither has alleviated the pain. 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 Problem List - Shoulder pain right Patient Instructions - Rest the shoulder; - Begin gentle movement of the shoulder tomorrow. - Take prescribed medication for inflammation and pain. Diclofenac 75 mg b.i.d. with food - Stay off work for a couple of days and see how the shoulder improves. Review of Systems - General: No fever no chills - Neurological: No headaches no dizziness - Ear nose throat: No sore throat no hearing difficulty no ear pain - Cardiovascular: No syncope, no chest pain, no palpitations - Gastrointestinal: No nausea vomiting or diarrhea Physical Exam General: No acute distress HEENT: No acute findings Neck: Supple Respiratory system: Able to talk in full sentences, Gastrointestinal: No pain Extremities: Right shoulder pain, possible rotator cuff inflammation, no dislocation observed DIRECTOR PATIENT ACCOUNTING: Alert awake oriented Skin: Normal turgor PFSH Medical History No pertinent past medical history Surgical History No pertinent past surgical history Family History Mother Diabetes Mental problem Mother HTN (hypertension) Father Hyperlipidemia Mental problem Substance abuse Social History Housing: Apartment Alcohol intake: never Patient Tobacco Use Status: Never used Tobacco e-Cigarette/Vaping Use: Never Used Second Hand Smoke Exposure: No service: No Current occupational status: employed 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 Current occupational exposures/hazards: No Gender identity: Female Cognitive needs: No Hearing needs: No Vision needs: No Female Reproductive History Menstrual Age of Menarche: 10 Physical Exam Vital Signs: Last Vital Signs Temp 98.2 F 10/21/24 10:19 Pulse 71 10/21/24 10:19 BP 102/70 10/21/24 10:19 Pulse Ox 98 10/21/24 10:19 Oxygen Delivery Method Room Air 10/21/24 10:19 BMI result Body Mass Index 34.2 Assessment & Plan Assessment & Plan (1) Shoulder pain, right: Code(s): M25.511 - Pain in right shoulder Qualifiers: Chronicity: acute Qualified Code(s): M25.511 - Pain in right shoulder Plan History - The patient is a 34-year-old female presenting with shoulder pain. - The shoulder pain began on Sunday night; it has been present for two days. - The pain onset was noted after she woke up on Sunday, with prior activities including cleaning the bathroom on Sunday. - There has been no prior history of similar episodes of shoulder pain. - Pain has been described as severe and persistent, affecting arm mobility. - The patient has taken Tylenol and Motrin, but neither has alleviated the pain. 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 Problem List - Shoulder pain right Patient Instructions - Rest the shoulder; - Begin gentle movement of the shoulder tomorrow. - Take prescribed medication for inflammation and pain. Diclofenac 75 mg b.i.d. with food - Stay off work for a couple of days and see how the shoulder improves. Medications: New diclofenac sodium 75 mg PO BID 20 tabs 0RF pain 10 days Coding Level of Care Code Est Pt Level 3 (54479) Diagnoses Acute pain of right shoulder M25.511 Chronicity: acute
[2024-10-21 10:19] VITALS: BP 102/70; PULSE 71; TEMP 36.8; O2SAT 98; BMI 34.2
--- OUTSIDE RECORDS SUMMARY | 2024-10-21 11:10 | XMS_ITS | Clinical Summary ---
Author Organization [facility] Address [address] [place] [address] Care Team Providers Care Commutator Undercutter Name Role Phone Armando Whitfield Primary Care Provider [phone] Source Comments PLEASE NOTE, if this patient [...] file Not on file Not on file ELEVATOR ERECTOR Not on file Not on file Not [...] Monitoring 01/20/2015 10/20/2014 Hypertension Screening (#1) 10/19/2017 [id number] ( season) 2023 021, 07/14/2020 Alcohol and Drug Screen 04/02/2024 10/20/2014, 10/20 Imm-Influenza (#1) 2024 01/14/2018, 0 12/20/2009, 12/28/2008 Imm-DTaP/Tdap/Td (7 - Td or Tdap) 04/13/2027 04/13/2017, 12/12/2004, 1996, Additional history exists Imm-Hepatitis B Completed 08/31/1995, 06/01, 04/30/1995 Cervical Ablation/Cold-Knife Conization Discontinued Cervical Cryotherapy Discontinued Colposcopy Discontinued Endometrial Biopsy Discontinued Excision/Leep Discontinued HPV Genotyping Discontinued Vaginal Pap Discontinued Vulvoscopy Discontinued Insurance [facility] Care Teams Commutator Undercutter Relationship Specialty Start Date End Date Armando Whitfield PA [address] [place] [address] PCP - General Internal Medicine 03/30/16
== END 2024-10-21 10:57 | disposition home or self-care (01) ==
PROVIDERS: PCP Nurse Practitioner Family; Visit Provider Internal Medicine
DX: M25.511 Pain in right shoulder (principal)

== ENCOUNTER 2025-01-16 15:10 | Outpatient (AMB) | payer BC, SELFPAY ==
--- NOTE | 2025-01-16 15:24 | A.OFFPC_ITS ---
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 She reports a one year plus history of trying to get Menses monthly -5 day, consistent. She admits to taking vitamin D3 as prescribed without adverse reactions. Hyperlipidemia. She has been trying to eat much healthier, smaller portions and is active daily. She has been unable to lose any significant amount of weight Reports left wrist pain, left wrist and hand numbness. 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 HEENT: Denies changes in vision and hearing. RESPIRATORY: Denies SOB and cough. CV: Denies palpitations and CP GI: Denies abdominal pain, nausea, vomiting and diarrhea. : Denies dysuria and urinary frequency. MSK: Denies new myalgia and joint pain. SKIN: Denies rash and pruritus. NEUROLOGICAL: Denies headache PSYCHIATRIC: Denies recent changes in mood. PHYSICAL EXAM: GENERAL: Alert and oriented x 3. NAD EYES: EOMI. Anicteric. HENT: Moist mucous membranes. No scleral icterus. No cervical lymphadenopathy. LUNGS: Clear to auscultation bilaterally. CARDIOVASCULAR: Regular rate and rhythm. No murmur. No JVD. ABDOMEN: Soft, non-tender +bs EXTREMITIES: No edema. Non-tender. SKIN: No rashes or lesions. Warm. NEUROLOGIC: No focal neurological deficits. CN II-XII grossly intact PSYCHIATRIC: Cooperative. Appropriate mood and affect. REPLACED BY [facility] Medical History No pertinent past medical history Surgical History No pertinent past surgical history Family History Mother Diabetes Mental problem Mother HTN (hypertension) Father Hyperlipidemia Mental problem Substance abuse Social History Housing: Apartment Alcohol intake: never Patient Tobacco Use Status: Never used Tobacco e-Cigarette/Vaping Use: Never Used Second Hand Smoke Exposure: No service: No Current occupational status: employed Current occupation: [employer] Current occupational exposures/hazards: No Gender identity: Female Cognitive needs: No Hearing needs: No Vision needs: No Female Reproductive History Menstrual Age of Menarche: 10 Questionnaire Thrive Questionnaire Date Thrive assessed: 07/11/24 I am a: Patient What is your living situation today?: I have a steady place to live Within the past 12 months, did the food you bought not last and you didn't have the money to get more?: Never true Within the past 12 months, did you worry whether your food would run out before you got money to buy more?: Never true Do you have trouble paying for medicines?: No Do you have trouble getting transportation to medical appointments?: No Do you have trouble paying your heating and electricity bill?: No Do you have trouble taking care of your child, family member or friend?: No Do you have trouble with day-to-day activities such as bathing, preparing meals, shopping, managing finances, etc.?: No Are you currently unemployed and looking for a job?: No Are you interested in more education?: No Please select the resources that you would like help with: None Currently or been in a relationship where the following occur: No concerns reported THRIVE Score: 0 CAMMIE-7 AMB Questionnaire CAMMIE-7 Date CAMMIE - 7 assessed: 07/11/24 Source: Developed by Drs. Wei Grajeda, Millie Monsalve, Salbador Kunz and colleagues, with an educational daija from [employer]. Physical exam (Primary Care) Vital Signs: Last Vital Signs Temp 98.2 F 01/16/25 15:29 Pulse 71 01/16/25 15:29 Resp 18 01/16/25 15:29 BP 102/58 L 01/16/25 15:29 Pulse Ox 99 01/16/25 15:29 Oxygen Delivery Method Room Air 01/16/25 15:29 BMI result Body Mass Index 35.2 Tobacco/Smoking Status: Tobacco use Status Tobacco use date assessed 07/11/24 01/16/25 15:33 Patient Tobacco Use Status Never used Tobacco 01/16/25 15:33 e-Cigarette/Vaping Use Never Used 01/16/25 15:33 Thrive Assessment: Date of Thrive Assessment Date Thrive assessed 07/11/24 01/16/25 15:33 Currently or been in a relationship where the following occur: No concerns reported Coding Level of Care Code Est Pt Level 4 (27468) Complex EM visit Add On G2211 Diagnoses Anxiety and depression F41.9; F32.A Hypercholesterolemia E78.00 Vitamin D deficiency E55.9 Obesity (BMI 30-39.9) E66.9 Left wrist pain M25.532 Assessment & Plan Assessment & Plan (1) Anxiety and depression: Code(s): F41.9 - Anxiety disorder, unspecified; F32.A - Depression, unspecified Category: Medical (2) Hypercholesterolemia: Code(s): E78.00 - Pure hypercholesterolemia, unspecified Category: Medical (3) Vitamin D deficiency: Code(s): E55.9 - Vitamin D deficiency, unspecified Category: Medical (4) Obesity (BMI 30-39.9): Code(s): E66.9 - Obesity, unspecified Category: Medical (5) Left wrist pain: Code(s): M25.532 - Pain in left wrist Category: Medical Plan Left wrist numbness, pain-emg and referral placed Infertility-referral placed. Obesity/HLD-trial phentermine. She can ask her insurance if they cover GLP. Orders: Orders NE electromyogram (EMG) 01/16/25 G56.00 - Carpal tunnel syndrome, unspecified upper limb NE nerve conduction velocity 01/16/25 G56.00 - Carpal tunnel syndrome, unspecified upper limb Referrals Endocrinology Referral Z31.9 - Encounter for procreative management, u nspecified Hand Surgery Referral M25.532 - Pain in left wrist Medications: New phentermine must administer 30 minutes before or 1-2 hours after breakfast 37.5 mg PO DAILY 30 caps 3RF
[2025-01-16 15:29] VITALS: BP 102/58; PULSE 71; RESP 18; TEMP 36.8; O2SAT 99; BMI 35.2
== END 2025-01-16 15:57 | disposition home or self-care (01) ==
LOC: HO.HMCFM 15:11
PROVIDERS: PCP Nurse Practitioner Family; Visit Provider Internal Medicine
DX: F41.9 Anxiety disorder, unspecified (principal); Z68.35 Body mass index [BMI] 35.0-35.9, adult; E66.9 Obesity, unspecified; F32.A Depression, unspecified; E78.00 Pure hypercholesterolemia, unspecified; E55.9 Vitamin D deficiency, unspecified; M25.532 Pain in left wrist

== ENCOUNTER 2025-03-17 08:13 | Outpatient (REF) | payer BC, SELFPAY ==
--- NOTE | 2025-03-17 08:14 | EMG_ITS ---
Chief complaint: Left upper extremity pain Referred by: Faiza Sinha MD Procedure done: NCS and EMG of left upper extremity Left median and ulnar motor studies were performed. Left median and ulnar mixed sensory studies and radial sensory study was performed and paraspinal muscles were tested with a needle. Findings: Left median mixed distal latencies was mildly delayed. Left ulnar motor conduction velocity was mildly slow across elbow with slight reduction of amplitude Impression: 1. Mild left median neuropathy across carpal tunnel 2. Mild left ulnar nerve slowing across elbow [facility] [id number] [facility]
== END 2025-03-17 08:14 | disposition home or self-care (01) ==
LOC: HO.NEURO 08:13
PROVIDERS: PCP Internal Medicine; Visit Provider Internal Medicine
DX: G56.02 Carpal tunnel syndrome, left upper limb (principal)
CPT/HCPCS: 95886; 95909

== ENCOUNTER → 2025-03-17 08:14 | Outpatient (BNV) | payer BC, SELFPAY | PROVIDERS: PCP Internal Medicine; Visit Provider Psychiatry & Neurology Neurology | DX: G56.02 Carpal tunnel syndrome, left upper limb (principal) | CPT/HCPCS: 95886; 95909 ==

== ENCOUNTER 2025-03-20 11:57 | Outpatient (AMB) | payer BC, SELFPAY ==
[2025-03-20 11:59] VITALS: BMI 35.2
--- NOTE | 2025-03-20 11:59 | MHC.OFFVIS ---
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 States her symptoms are daily and constant. Patient would like to discuss treatment options. She is also having CTS in her right hand. Also she slipped last week on her stairs injuring her right small finger. Impression 03/17/25: 1. Mild left median neuropathy across carpal tunnel 2. Mild left ulnar nerve slowing across elbow Allergies Seasonal Allergies Allergy (Mild, Verified 03/20/25 12:04) sneezing, runny nose HPI HPI MANAGER PEOPLE-Pain in left wrist: Details: Mimi is a 34 year old right hand dominant female who presents today with complaints of left wrist pain & numbness. 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 States her symptoms are daily and constant. Patient would like to discuss treatment options. She is also having CTS in her right hand. Impression 03/17/25: 1. Mild left median neuropathy across carpal tunnel 2. Mild left ulnar nerve slowing across elbow PFSH Medical History No pertinent past medical history Surgical History No pertinent past surgical history Family History Mother Diabetes Mental problem Mother HTN (hypertension) Father Hyperlipidemia Mental problem Substance abuse Social History Housing: Apartment Alcohol intake: never Patient Tobacco Use Status: Never used Tobacco e-Cigarette/Vaping Use: Never Used Second Hand Smoke Exposure: No service: No Current occupational status: employed Current occupation: [employer] Current occupational exposures/hazards: No Gender identity: Female Cognitive needs: No Hearing needs: No Vision needs: No Female Reproductive History Menstrual Age of Menarche: 10 Review of Systems Const All systems reviewed & are unremarkable except as noted in HPI and below Physical Exam Vital Signs: BMI result Body Mass Index 35.2 Extrem Other: Neuro: Normal sensation of the tips of all digits of the left hand in the office today No thenar or intrinsic wasting. Good APB muscle firing and good finger cross. Vascular: Capillary refill brisk. ROM: Patient can make a fist and extend all their digits. Skin: No lacerations or abrasions noted. General: No ecchymosis. No erythema or evidence of infection. Assessment & Plan Assessment & Plan (1) Left carpal tunnel syndrome: Code(s): G56.02 - Carpal tunnel syndrome, left upper limb Category: Medical (2) Cubital tunnel syndrome on left: Code(s): G56.22 - Lesion of ulnar nerve, left upper limb Category: Medical Plan 1. Left carpal tunnel syndrome 2. Left cubital tunnel syndrome Symptoms intermittent, daily, worse at night I educated the patient about the condition. I discussed both operative and nonoperative treatment options. The patient would like to proceed with surgery. The risks and benefits of operative treatment were discussed with the patient and the patient wishes to proceed with surgery. These risks include, but are not limited to, risk of damage to blood vessels, nerves, tendons, infection, recurrence, incomplete relief of preoperative symptoms, persistent pain, possible need for further surgery, and the risks associated with regional blocks and/or anesthesia. Patient states she would eventually like to move forward with surgery, however she will need to take some time to discuss with her job and her family to determine if this is a good logistical choice for her at this time Therefore, patient is provided with my contact information and should call our office if she decides she would like to move forward with surgery Patient understands this and is amenable to this plan Coding Level of Care Code New Pt Level 4 (01017) Diagnoses Left carpal tunnel syndrome G56.02 Cubital tunnel syndrome on left G56.
== END 2025-03-20 12:18 | disposition home or self-care (01) ==
LOC: HO.HOS 11:57
PROVIDERS: PCP Internal Medicine
DX: G56.02 Carpal tunnel syndrome, left upper limb (principal); G56.22 Lesion of ulnar nerve, left upper limb
CPT/HCPCS: 99204